=== PATIENT | male | born 1955 | race Caucasian/White ===

== ENCOUNTER → 2018-03-09 00:45 | Outpatient (CLI) | payer BC, SELFPAY ==
[2018-03-09 08:27] LABS: Abs Immature Grans 0.02 k/cumm (0.0-0.09); Absolute Basophil Count 0.06 k/cumm (0.0-0.2); Absolute Eosinophil Count 0.15 k/cumm (0.0-0.7); Absolute Lymphocyte Count 1.92 k/cumm (1.2-3.4); Absolute Monocyte Count 0.59 k/cumm (0.11-0.7); Absolute Neutrophil Count 2.96 k/cumm (1.2-6.7); Basophils % 1.1; Eosinophils % 2.6; HCT 44.9 % (40.0-50.0); HGB 15.1 g/dL (13.5-17.5); Immature Grans % 0.4; Lymphocytes % 33.7; Mean Corp. HGB Concentration 33.6 g/dL (32.0-36.0); Mean Corpuscular Hemoglobin 31.1 pg (27.0-33.0); Mean Corpuscular Volume 92.4 fL (80-95); Mean Platelet Volume 9.8 fL (8.0-11.0); Monocytes % 10.4; Neutrophils % 51.8; Platelet Count 303 x1000/uL (130-400); RBC 4.86 m/cumm (4.50-6.00)
[2018-03-09 09:19] LABS: ALT 32 U/L (12-78); AST 24 U/L (15-37); Alkaline Phosphatase 59 U/L (46-116); Anion Gap 8.5 mmol/L (3-11); BUN 18 mg/dL (7-18); Bilirubin, Total 0.5 mg/dL (0.2-1.0); CO2 28.5 mmol/L (21.0-32.0); CREATININE 1.13 mg/dL (0.70-1.30); Calcium 8.9 mg/dL (8.5-10.1); Chloride 103 mmol/L (98-107); Cholesterol 159 mg/dL (50-200); Glucose 98 mg/dL (70-100); HDL Cholesterol 50 mg/dL (40-60); LDL CHOLESTEROL 106 mg/dL (<100); Potassium 3.9 mmol/L (3.5-5.1); Sodium 140 mmol/L (136-145); Triglyceride 52 mg/dL (30-150)
== END ==
PROVIDERS: PCP Nurse Practitioner; Visit Provider Nurse Practitioner
DX: E78.5 Hyperlipidemia, unspecified (principal); I10 Essential (primary) hypertension; G47.33 Obstructive sleep apnea (adult) (pediatric)
CPT/HCPCS: 36415; 80053; 80061; 83721; 85025

== ENCOUNTER 2019-04-11 07:01 | Outpatient (CLI) | payer BC, SELFPAY ==
[2019-04-11 08:08] LABS: ALT 31 U/L (16-63); AST 16 U/L (15-37); Alkaline Phosphatase 74 U/L (46-116); BUN 18 mg/dL (7-18); Bilirubin, Total 0.3 mg/dL (0.2-1.0); CREATININE 1.13 mg/dL (0.70-1.30); Calcium 8.8 mg/dL (8.5-10.1); Calculated LDL 90 mg/dL; Chloride 103 mmol/L (98-107); Cholesterol 145 mg/dL (50-200); Glucose 110 mg/dL (70-100); HDL Cholesterol 45 mg/dL (40-60); Potassium 3.9 mmol/L (3.5-5.1); Sodium 138 mmol/L (136-145); Triglyceride 53 mg/dL (30-150)
== END 2019-04-11 07:21 ==
PROVIDERS: PCP Nurse Practitioner; Visit Provider Nurse Practitioner
DX: E78.5 Hyperlipidemia, unspecified (principal); I10 Essential (primary) hypertension
CPT/HCPCS: 36415; 80053; 80061

== ENCOUNTER 2019-11-04 01:50 | Outpatient (CLI) | payer BC, SELFPAY ==
--- NOTE | 2019-11-04 | DI.MRI_ITS ---
EXAM: MR UPPER JOINT LT WO CLINICAL HISTORY: M75.102,TEAR OF LT ROTATOR CUFF, SHOULDER PAIN. TECHNIQUE: Multiplanar multisequence MRI was performed. COMPARISON: No exams were available for comparison FINDINGS: MR examination of the shoulder was performed according to the usual protocol. Bones: Mildly abnormal signal seen in the greater tuberosity of the humerus, adjacent to supraspinatu s attachment, presumably stress or degenerative related. Mildly abnormal signal in hypertrophied acr omioclavicular joint components. There is a moderate sized glenohumeral joint effusion and there is fluid in the subacromial subdeltoi d bursa. Labrum: There may be slight labral fraying and effacement anteriorly. No gross labral tear seen. Biceps: Bicipital tendon is normally placed in the bicipital groove. There is question of surface ir regularity of the tendon and/or tendon sheath at the level of the humeral neck, partial-thickness tea r not excluded. The biceps anchor appears intact. Rotator cuff: There is abnormal signal in the distal supraspinatus tendon and infraspinatus tendon. No definite infraspinatus tendinous tear seen. Non retracted partial and full thickness tear with ir regular fraying of the distal supraspinatus tendon. There may be a minimal partial thickness tear of the distal subscapularis tendon. Additional: There is probable tear of the proximal aspect of the anterior belly of the deltoid muscle at and below the level of the acromion with abnormal signal and irregular internal surface of the an terior belly of the deltoid. IMPRESSION: Non retracted partial and full thickness tear of distal supraspinatus tendon, full-thickness tear com ponent estimated at only a couple of millimeters, partial thickness tear complex, less than 1 cm. Minimal partial thickness intrasubstance tear of the distal subscapularis tendon. Probable anterior belly proximal deltoid tear. Additional findings as described above. DATA REPOSITORY:
== END 2019-11-04 02:10 ==
PROVIDERS: PCP Nurse Practitioner; Visit Provider Specialist
DX: M25.512 Pain in left shoulder (principal); M75.102 Unspecified rotator cuff tear or rupture of left shoulder, not specified as traumatic; M25.412 Effusion, left shoulder; S46.012A Strain of muscle(s) and tendon(s) of the rotator cuff of left shoulder, initial encounter
CPT/HCPCS: 73221

== ENCOUNTER 2020-01-15 14:02 | Emergency (ER) | payer BC, SELFPAY ==
[2020-01-15 14:07] VITALS: BP 144/92; PULSE 85; RESP 18; TEMP 36.8; O2SAT 95
--- NOTE | 2020-01-15 14:14 | W.ED.GENAD ---
Discharge Plan Disposition Patient Disposition: HOME Condition: Stable Discharge Details Chief Complaint: Cellulitis Clinical Impression: Left arm cellulitis Primary Care Provider: Sary Jackson ED Provider: Massimo Monroe Home Meds and New Rx's Prescriptions: New cephalexin [Keflex] 500 mg capsule 500 mg PO QID Qty: 27 RF: 0 No Action fluticasone furoate 27.5 mcg/actuation spray,suspension 2 spray BRIE DAILY Qty: 18.2 RF: 1 amlodipine-benazepril 10-20 mg capsule 1 cap PO DAILY Qty: 90 RF: 3 simvastatin 10 mg tablet 10 mg PO DAILY Qty: 90 RF: 3 spironolacton-hydrochlorothiaz 25-25 mg tablet 1 tab PO DAILY Qty: 90 RF: 3 multivitamin [Daily Vitamin] 1 EACH tablet 1 ea PO DAILY RF: 0 aspirin [Aspirin Low-Strength] 81 MG tablet,chewable 81 mg PO DAILY Qty: 90 RF: 0 Pepto-Bismol 262 MG tablet 262 mg PO PRN RF: 0 acetaminophen [Tylenol Extra Strength] 500 MG tablet 500 mg PO BID PRNQty: 2 RF: 0 garlic [Daily Garlic Once-A-Day] 400 MG tablet 400 mg PO BID RF: 0 Probiotic (B. coagulans) 1 EACH capsule,delayed release(DR/EC) 1 ea PO DAILY RF: 0 epinephrine 0.3 MG/SYR auto-injector 0.3 mg IJ PRN PRNQty: 1 RF: 12 Discharge Instructions Instructions: Cellulitis (ED), Sunburn (ED) Additional Instructions: Please take full course of antibiotic as prescribed. Please contact your primary care physician to arrange follow-up. Return to the ER for any worsening or new concerning symptoms. Referrals: Sary Jackson, KARL [Primary Care Provider] - Medical Decision Making 64-year-old male with small papule and surrounding mild swelling. Forearm compartments soft. Difficult to determine if erythema present as patient has sunburn. Area is nontender. Patient is afebrile and nonseptic appearing. Plan to cover with Keflex for mild cellulitis. I reviewed prior Tdap immunization: Patient last received 2010. Will provide booster at this time. Patient was encouraged to follow-up with his primary care physician and return should any thing worsen. Usual customary discharge instructions were provided. Patient verbalized understanding of discharge instructions. HPI General Mode of arrival: ambulatory. Date/Time Provider Initiated Documentation: 01/15/20 14:14. Limitations to Documentation: no limitations. Information obtained by: patient. HPI Narrative: 64-year-old male presents with a chief complaint of right arm swelling. Patient notes some small area of inflammation left forearm with slightly increased swelling over the past few days. Symptoms first noted 3 days ago. No associated pain. Swelling is localized and surrounding focal raised papular superficial ulceration. He does not recall a bug bite. He is not recall insect sting. He does note he is been working outside on his [employer]. He does not recall any specific injury. Related Data Home Medications Medication Instructions Recorded Confirmed Pepto-Bismol 262 mg PO PRN 12/14/12 10/15/19 aspirin [Aspirin Low-Strength] 81 mg PO DAILY #90 tab-cap 12/14/12 10/15/19 multivitamin [Daily Vitamin] 1 ea PO DAILY 12/14/12 10/15/19 acetaminophen [Tylenol Extra 500 mg PO BID PRN #2 11/27/15 10/15/19 Strength] garlic [Daily Garlic Once-A-Day] 400 mg PO BID tab 04/04/16 10/15/19 Probiotic (B. coagulans) 1 ea PO DAILY 11/29/16 10/15/19 epinephrine 0.3 mg IJ PRN PRN #1 kit 03/07/18 10/15/19 amlodipine 10 mg-benazepril 20 mg 1 cap PO DAILY #90 tab-cap 03/20/19 10/15/19 capsule simvastatin 10 mg tablet 10 mg PO DAILY #90 tab-cap 03/20/19 10/15/19 spironolactone 25 1 tab PO DAILY #90 tab-cap 03/20/19 10/15/19 mg-hydrochlorothiazide 25 mg tablet fluticasone furoate 27.5 2 spray BRIE DAILY #18.2 ml 08/02/19 10/15/19 mcg/actuation nasal spray,suspension cephalexin [Keflex] 500 mg PO QID #27 cap 01/15/20 Previous Rx's Medication Instructions Recorded amlodipine 10 mg-benazepril 20 mg 1 cap PO DAILY #90 tab-cap 03/20/19 capsule simvastatin 10 mg tablet 10 mg PO DAILY #90 tab-cap 08/14/19 spironolactone 25 1 tab PO DAILY #90 tab-cap 03/20/19 mg-hydrochlorothiazide 25 mg tablet fluticasone furoate 27.5 2 spray BRIE DAILY #18.2 ml 08/02/19 mcg/actuation nasal spray,suspension cephalexin [Keflex] 500 mg PO QID #27 cap 01/15/20 Allergies Allergy/AdvReac Type Severity Reaction Status Date / Time bee pollen Allergy Hives Verified 01/15/20 14:13 chlorthalidone AdvReac Intermediate low Verified 01/15/20 14:13 potassium influenza virus vaccine Allergy Intermediate body aches Uncoded 01/15/20 14:13 and fever General Stated Complaint: Cellulitis ROSANA: 4 Review of Systems Constitutional Constitutional: Denies fever(s) Integumentary/Breasts Skin/Breast: Reports as per [facility] Medical History Chronic left shoulder pain (Acute) Obesity (Chronic) Surgical History Debridement, Soft Tissue (08/07/85) Dr Ramirez Left wrist: staph infection debrided Repair of inguinal hernia (~1984) [facility] Vasectomy (03/07/02) Dr Parekh's office Family History Mother Myocardial infarction Father , ? of cancer at age 70. No problems noted. Sister No problems noted. Brother No problems noted. Brother No problems noted. 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 [employer] What type of physical activity do you participate in: walking Do you feel safe at home: Yes Do you feel safe in your relationship?: Yes Exam Const General: cooperative and no acute distress HENMT Mouth: moist mucous membranes Cardio Rate: regular rate and not tachycardic Rhythm: regular rhythm Skin Rashes: rashes noted (3mm papule with superficial ulceration right forearm) and other (Sunburn face, arms, neck) Neuro General: patient alert, patient awake and patient oriented x3 Extrem General: no edema Left upper extremity: elbow/forearm (Compartments soft) Details: swelling (Mild swelling surrounding papule) and distal pulses intact; no tenderness, no unusual warmth, no crepitus and no penetrating wound Course Vital Signs Vital signs: Vital Signs Temperature 36.8 C 01/15/20 14:07 Pulse 85 01/15/20 14:07 Respiratory Rate 18 01/15/20 14:07 Blood Pressure 144/92 H 01/15/20 14:07 Pulse Oximetry 95 01/15/20 14:07 Temperature 36.8 C 01/15/20 14:07 Temperature Source Skin 01/15/20 14:07 Pulse 85 01/15/20 14:07 Respiratory Rate 18 01/15/20 14:07 Respiratory Effort Non-Labored 01/15/20 14:11 Blood Pressure 144/92 H 01/15/20 14:07 Blood Pressure Position Sitting 01/15/20 14:07 Pulse Oximetry 95 01/15/20 14:07 Oxygen Delivery Method Room Air 01/15/20 14:07 Oxygen Flow Rate 0 01/15/20 14:07
[2020-01-15] MEDS: Cephalexin 500 MG CAP PO (14:27)
== END 2020-01-15 14:44 | disposition home or self-care (01) ==
PROVIDERS: Emergency Provider Student in an Organized Health Care Education/Training Program; PCP Nurse Practitioner
DX: L03.114 Cellulitis of left upper limb (principal); L55.9 Sunburn, unspecified
CPT/HCPCS: 90471; 99284; 99283

== ENCOUNTER 2020-03-26 01:39 | Outpatient (CLI) | payer BC, SELFPAY ==
[2020-03-26 12:55] LABS: ALT 25 U/L (16-63); AST 13 U/L (15-37); Albumin 4.2 g/dL (3.4-5.0); Alkaline Phosphatase 72 U/L (46-116); Anion Gap 9.7 mmol/L (3-11); BUN 19 mg/dL (7-18); Bilirubin, Total 0.5 mg/dL (0.2-1.0); CO2 27.3 mmol/L (21.0-32.0); CREATININE 1.16 mg/dL (0.70-1.30); Calcium 9.5 mg/dL (8.5-10.1); Calculated LDL 90 mg/dL (<100); Chloride 104 mmol/L (98-107); Cholesterol 144 mg/dL (<200); Glucose 94 mg/dL (74-106); HDL Cholesterol 46 mg/dL (40-60); Potassium 3.8 mmol/L (3.5-5.1); Sodium 141 mmol/L (136-145); Total Protein 7.2 g/dL (6.4-8.2); Triglyceride 43 mg/dL (<150)
== END 2020-03-26 01:59 ==
PROVIDERS: PCP Nurse Practitioner; Visit Provider Nurse Practitioner
DX: I10 Essential (primary) hypertension (principal); E78.5 Hyperlipidemia, unspecified; E66.9 Obesity, unspecified
CPT/HCPCS: 36415; 80053; 80061

== ENCOUNTER 2020-04-23 10:06 | Day surgery (SDC) | payer BC, SELFPAY ==
[2020-04-23 10:23] VITALS: BP 145/93; PULSE 55; RESP 16; TEMP 36.2; O2SAT 98
[2020-04-23] MEDS: Lactated Ringers 1,000 ML 80 ML IV (10:42)
--- NOTE | 2020-04-23 12:00 | BOWEL_PTH ---
PATIENT: Phu Em LOC: [facility] U#:[id number] AGE/SX: 64/M ROOM: RE04/23/[address]: Sandi Arriaga : 1955 BED: DIS: 04/23/2020 SPEC #: [id number] RECD: 04/23/20 13:06 STATUS: SLIM RE #: [id number] CHUY: 04/23/20 12:[address]: Sandi Arriaga DEPT: Surgical Specimen RECD BY: Kika Turpin ENTERED: 04/23/20 13:07 SP TYPE: Bowel OTHR DR: Sary Jackson APRN Tissues: 1 - BIOPSY BOWEL 2 - BIOPSY BOWEL Procedures: GROSS AND MICRO LEVEL 4 Comments: [id number]
--- NOTE | 2020-04-23 12:17 | W.COLOREPORT ---
Date of service: 04/23/20 Time of Service: 12:18 Colonoscopy Report Date of procedure: 04/23/20 Pre-op diagnosis general: CRC screen Post-op diagnosis procedure note: other (polyps and diverticular Dx ) Procedure: CE and cold polypcetomy x4 adn severe diverticular Surgeon: Sandi Arriaga Anesthesia proc note operative: MAC Estimated blood loss (mL): 1 Pathology: other Complications: None Disposition: same day Prep: Miralax/Dulcolax Retraction Time: 12 mins Procedure Description: After informed consent was obtained the patient was taken to the procedure room and placed in a left decubitous position. Monitors were applied and a time out was done. The patients name, date of , procedure, allergies to medications and metal in their body was reviewed. The patient was then sedated. Once sedated and comfortable a rectal exam was done. External exam was normal. Internal exam revealed a normal sphincter tone and no palpable masses. The prostate nl. The scope was then introduced and retrofelexed. No internal hemorrhoids were identified. The scope was then advanced to the cecum w/ out difficulty. The TI and appendiceal orifice were identified. The prep was adequate. The scope was then slowly retracted over 12 minutes back into the rectum. Polyps were removed at x3 @ 80cm and x1 @ 70cm. These are removed with a cold biting forcep all specimen is retrieved and no bleeding is noted. Pt has severe diverticular DX. no signs of active bleeding or infection. He has severe diverticular disease with multiple large polyps pockets. The majority of the diverticuli are confined to the sigmoid colon. But he does have diverticula but they do carry over all the way to the transverse colon. The scope was removed and the patient was woken up and taken back to Same day surgery in stable condition. The patient tolerated the procedure well and there were no immediate complications. Follow up: The patient should follow up in 5-10 years, path pd, unless they develop changes in bowel habits or other new gastrointestinal complaints.
--- NOTE | 2020-04-23 12:22 | PDOC.DSDIS_ITS ---
Discharge Plan Disposition Patient Disposition: HOME Condition: Good Discharge Details Reason For Visit: colon scope Attending Provider: Sandi Arriaga Primary Care Provider: Sary Jackson Home Meds and New Rx's Prescriptions: Continued fluticasone furoate 27.5 mcg/actuation spray,suspension 2 spray BRIE DAILY Qty: 18.2 RF: 1 amlodipine-benazepril 10-20 mg capsule 1 cap PO DAILY Qty: 90 RF: 3 spironolacton-hydrochlorothiaz 25-25 mg tablet 1 tab PO DAILY Qty: 90 RF: 3 multivitamin [Daily Vitamin] 1 EACH tablet 1 ea PO DAILY RF: 0 aspirin [Aspirin Low-Strength] 81 MG tablet,chewable 81 mg PO DAILY Qty: 90 RF: 0 Pepto-Bismol 262 MG tablet 262 mg PO PRN RF: 0 acetaminophen [Tylenol Extra Strength] 500 MG tablet 500 mg PO BID PRNQty: 2 RF: 0 garlic [Daily Garlic Once-A-Day] 400 MG tablet 400 mg PO BID RF: 0 Probiotic (B. coagulans) 1 EACH capsule,delayed release(DR/EC) 1 ea PO DAILY RF: 0 simvastatin 10 mg tablet 10 mg PO DAILY Qty: 90 RF: 3 epinephrine 0.3 mg/0.3 mL auto-injector 0.3 mg IJ PRN PRN (Reason: hypersensitivity reaction) Qty: 2 RF: 6 Discontinued polyethylene glycol 3350 17 gram/dose powder 238 g PO ONCE Qty: 238 RF: 0 bisacodyl [Dulcolax (bisacodyl)] 5 mg tablet,delayed release (DR/EC) 5 mg PO ONCE Qty: 4 RF: 0 Discharge Instructions Additional Instructions: Findings: severe diverticula x4 polyps -Small light meals x24 hours -No strenuous activity or lifting over 20 pounds x 24 hours -Make sure you are moving your bowels on a regular basis and avoid straining to move your bowels -Resume aspirin in 72 hours Follow up: We will send a letter in 2 to 3 weeks with pathology results of the polyps and when to repeat the colonoscopy. Please call if you develop: fevers >101.5 Nausea or Vomiting Abdominal pain that is not transient DAY SURGERY UNIT POST COLONOSCOPY INSTRUCTIONS 1. Because there will be medication in your system for the next 24 hours, you may feel a little sleepy. Your coordination will be affected. Therefore: a. Do not drive or operate dangerous equipment for 24 hours. b. Do not drink alcohol beverages for 24 hours (not even beer). c. Plan to go home and rest for the day. 2. Generally there are no restrictions on your activity after a day or so has gone by, but you may feel a bit fatigued for a few days. 3 After you arrive home you may have a light meal and return to a normal diet as you can tolerate it without feeling sick to your stomach. 4. After surgery, you may feel pain or discomfort. This should be only transient, but if it persists please contact your doctor. 5. If there are any questions regarding the findings of your procedure, please feel free to contact your doctor. 6. If you are unable to contact your doctor with a problem, contact the hospital at [phone]. 7. Continue all your regular medications unless directed otherwise. I understand the above instructions and have no questions. Signature of Patient or Responsible Adult Escort Date/Time Name of Responsible Adult Escort Signature of Nurse Date/Time DIVERTICULAR DISEASE OVERVIEW ? A diverticulum is a pouch-like structure that can form through points of weakness in the muscular wall of the colon (ie, at points where blood vessels pass through the wall). Diverticulosis affects men and women equally. The risk of diverticular disease increases with age. It occurs throughout the world but is seen more commonly in developed countries. WHAT IS DIVERTICULAR DISEASE? Diverticulosis ? Diverticulosis merely describes the presence of diverticula. Diverticulosis is often found during a test done for other reasons, such as flexible sigmoidoscopy, colonoscopy, or barium enema. Most people with diverticulosis have no symptoms and will remain symptom free for the rest of their lives. A person with diverticulosis may have diverticulitis, or diverticular bleeding. Diverticulitis ? Inflammation of a diverticulum (diverticulitis) occurs when there is thinning and breakdown of the diverticular wall. This may be caused by increased pressure within the colon or by hardened particles of stool, which can become lodged within the diverticulum. The symptoms of diverticulitis depend upon the degree of inflammation present. The most common symptom is pain in the left lower abdomen. Other symptoms can include nausea and vomiting, constipation, diarrhea, and urinary symptoms such as pain or burning when urinating or the frequent need to urinate. Diverticulitis is divided into simple and complicated forms. ?Simple diverticulitis, which accounts for 75 percent of cases, is not associated with complications and typically responds to medical treatment without surgery. ?Complicated diverticulitis occurs in 25 percent of cases and usually requires surgery. Complications associated with diverticulitis can include the following: ?Abscess ? a localized collection of pus ?Fistula ? an abnormal tract between two areas that are not normally connected (eg, bowel and bladder) ?Obstruction ? a blockage of the colon ?Peritonitis ? infection involving the space around the abdominal organ ?Sepsis ? overwhelming body-wide infection that can lead to failure of multiple organs Diverticular bleeding ? Diverticular bleeding occurs when a small artery located within a diverticulum is eroded and bleeds into the colon. Diverticular bleeding usually causes painless bleeding from the rectum. In approximately 50 percent of cases, the person will see maroon or bright red blood with bowel movements. Is bleeding with a bowel movement normal? ? It is not normal to see blood in a bowel movement; this can be a sign of several conditions, most of which are not serious (eg, hemorrhoids) but some of which are serious and require immediate treatment. Anyone who sees blood after a bowel movement should consult with their healthcare provider to determine if further testing or evaluation is needed. DIVERTICULOSIS AND DIVERTICULITIS DIAGNOSIS ? Diverticulosis is often found during tests performed for other reasons. ?Barium enema ? This is an x-ray study that uses barium in an enema to view the outline of the lower intestinal tract. This is an older test and has been largely replaced by computed tomography (CT) scan. ?Flexible sigmoidoscopy ? This is an examination of the inside of the sigmoid colon with a thin, flexible tube that contains a camera. ?Colonoscopy ? This is an examination of the inside of the entire colon. ?CT scan ? A CT scan is often used to diagnose diverticulitis and its complications. If diverticulitis (not just diverticulosis) is suspected, the above three tests should not be used because of the risk of perforation. TREATMENT Diverticulosis ? People with diverticulosis who do not have symptoms do not require treatment. However, most clinicians recommend increasing fiber in the diet, which can help to bulk the stools and possibly prevent the development of new diverticula, diverticulitis, or diverticular bleeding. Fiber is not proven to prevent these conditions in all patients but may help to control recurrent episodes in some. Increase fiber ? Fruits and vegetables are a good source of fiber. Fiber content of packaged foods can be calculated by reading the nutrition label. Seeds and nuts ? Patients with diverticular disease have historically been advised to avoid whole pieces of fiber (such as seeds, corn, and nuts) because of concern that these foods could cause an episode of diverticulitis. However, this belief is completely unproven. We do not suggest that patients with diverticulosis avoid seeds, corn, or nuts. Diverticulitis ? Treatment of diverticulitis depends upon how severe your symp toms are. Home treatment ? If you have mild symptoms of diverticulitis (mild abdominal pain, usually left lower abdomen), you can be treated at home with a clear liquid diet and oral antibiotics. However, if you develop one or more of the following signs or symptoms, you should seek immediate medical attention: ?Temperature >100.1?F (38?C) ?Worsening or severe abdominal pain ?An inability to tolerate fluids Hospital treatment ? If you have moderate to severe symptoms, you may be hospitalized for treatment. During this time, you are not allowed to eat or drink; antibiotics and fluids are given into a vein. If you develop an abscess of the colon, you may require drainage of the abscess (usually performed by placing a drainage tube across the abdominal wall) or by surgically opening the affected area. Surgery ? If you develop a generalized infection in the abdomen (peritonitis), you will usually require an emergency operation. A two-part operation may be necessary in some cases. ?The first operation involves removal of the diseased colon and creation of a colostomy. A colostomy is an opening between the colon and the skin, where a bag is attached to collect waste from the intestine. The lower end of the colon is temporarily sewed closed to allow it to heal. ?Approximately three to six months later, a second operation is performed to reconnect the two parts of the colon and close the opening in the skin. You are then able to empty your bowels through the rectum. Sometimes patients require up to a year to recover from the first operation, depending on how sick they were. In non-emergency situations, the diseased area of the colon can be removed and the two ends of the colon can be reconnected in one operation, without the need for a colostomy. Surgery versus medical therapy ? An operation to remove the diseased area of the colon may be necessary if you do not improve with medical therapy. After an episode of uncomplicated diverticulitis, elective surgery is generally not required as the risk of another attack or requiring emergency surgery is low. However, patients with persistent symptoms attributable to diverticulitis, a history of complicated diverticulitis, or a compromised immune system should be evaluated for possible surgery to prevent another attack. In such patients, another attack has been associated with a higher risk of complications or . Of course, the decision will also depend in part upon your other medical conditions and ability to undergo surgery. In many cases, an elective operation can be performed laparoscopically, using small incisions, rather than the typical vertical (up and down) abdominal incision. Laparoscopic surgery usually allows you to recover more quickly and shortens the hospital stay. After diverticulitis resolves ? After an episode of diverticulitis resolves, if you have not had a recent colonoscopy, the entire length of the colon should be evaluated to determine the extent of disease and to rule out the presence of abnormal lesions such as polyps or cancer. Recommended tests include colonoscopy, barium enema and sigmoidoscopy, or CT colonography. Diverticular bleeding ? Most cases of diverticular bleeding resolve on their own. However, some people will need further testing or treatment to stop bleeding, which may include a colonoscopy, angiography (a treatment that blocks off the bleeding artery), bleeding scan, or surgery. DIVERTICULAR DISEASE PROGNOSIS Diverticulosis ? Over time, diverticulosis may cause no problems or it may cause episodes of bleeding and/or diverticulitis. Approximately 15 to 25 percent of people with diverticulosis will develop diverticulitis, while 5 to 15 percent will develop diverticular bleeding. Diverticulitis ? Approximately 85 percent of people with uncomplicated dive rticulitis will respond to medical treatment, while approximately 15 percent of patients will need an operation. After successful treatment for a first attack of diverticulitis, one-third of patients will remain asymptomatic, one-third will have episodic cramps without diverticulitis, and one-third will go on to have a second attack of diverticulitis. The prognosis tends to remain similar following a second attack of diverticulitis. Only 10 percent of people remain symptom-free after a second attack. Subsequent attacks tend to be of similar severity, not increasing in severity as previously believed. High Fiber Diet What is Dietary Fiber? All fiber comes from plants, bushes, adebayo or trees. Of course, the ones that we eat provide us with fruits, vegetables and grains. There are many different types of fiber but the three that are most important to the health of the body are: Insoluble Fiber This fiber does not dissolve in water, nor is it fermented by the bacteria residing in the colon. Rather, it retains water and in so doing, helps to promote a larger, bulkier and more regular bowel activity. This, in turn, may be important in preventing disorder such as diverticulosis and hemorrhoids, and in sweeping out certain toxins and cancer causing carcinogens. Sources of insoluble fiber are: ? whole grain wheat and other whole grains ? corn bran, including popcorn, unflavored and unsweetened ? nuts and seeds ? potatoes and the skins from most fruits from trees such as apples, bananas and avocados ? many green vegetables such as green beans, zucchini, celery and cauliflower ? some fruit plants such as tomatoes and kiwi Soluble Fiber These fibers are fermented or used by the colon bacteria as a food source or nourishment. When these good bacteria grow and thrive, many health benefits occur in both the colon and the body. Soluble fiber is present in some degree in most edible plant foods, but the ones with the most soluble fiber include: ? legumes such as peas and most beans, including soybeans ? oats, rye and barley ? many fruits such as berries, plums, apples bananas and pears ? certain vegetables such as broccoli and carrots ? most root vegetables ? psyllium husk supplement products Prebiotic Soluble Fiber These are relatively newly discovered soluble plant fibers. The technical name for this fiber is inulin or fructan. When these soluble fibers are fermented by the good colon bacteria, some further significant health benefits have been shown to occur by research in many medical centers. These soluble prebiotic fibers occur in significant amounts in: ? asparagus ? yams ? onions ? garlic ? bananas ? leeks ? agave ? chicory and other root vegetables such as Eldena artichokes ? wheat, rye and barley (smaller amounts) Benefits of a High Fiber Diet The health benefits of a high fiber diet, consumed on a regular basis and reaching recommended amounts (below), are now fairly well-defined. There are some additional benefits in the early research stage with the prebiotic soluble fibers. What is now known regarding a high fiber diet include: Bowel Regularity A high fiber diet promotes regularity with a softer, bulkier and regular stool pattern. This decreases the chance of hemorrhoids, diverticulosis and perhaps colon cancer. Cholesterol and Reduced Triglycerides The soluble fibers are the ones that will reduce cholesterol levels when used on a regular basis. Psyllium husk and prebiotic soluble fiber will also reduce cholesterol. They may also reduce the incidence of coronary heart disease. Oats, flax seeds and legumes or beans are the recommended fibers. Colon Polyps and Cancer It is still not certain if a high fiber diet helps prevent colon cancer. Considerable research suggests that this may occur. Certainly it makes sense to increase regularity and so speed the movement of cancer causing carcinogens through the bowel. In addition, reducing a heavy meat diet reduces the bile flow from the liver in a favorable way. This, too, reduces the amount of carcinogens that reach and are manufactured in the colon. Finally, a high fiber diet, including prebiotic soluble fiber, increases the integrity and health of the wall of the colon. The risk of cancer may be reduced. Colon Wall Integrity A high fiber diet changes the bacterial makeup of the colon toward a more favorable balance. For instance, it is known that those people with obesity, diabetes type 2 and inflammatory bowel disease have a predominance of bad bacteria in the colon. This, in turn, may render the bowel wall weak and allow bacteria and, indeed, even toxins to seep through. A high fiber diet with a modest reduction in animal and meat products may return the bacterial makeup to a more positive balance. This, in particular, has been seen when the soluble fiber prebiotics are added to the diet. Blood Sugar Soluble fiber such as in legumes (beans), oats and in prebiotic fibers slows the absorption of blood sugar and so helps regulate the sugar in the blood. Insoluble fiber on a regular basis is associated with reduced risk of type 2 diabetes. Weight Loss High fiber diets are more filling and give a sense of fullness sooner than an animal and meat based diet does. In addition, the soluble prebiotic fibers have been shown to turn off the hunger hormones produced in the wall of the gut and to increase the hormones that give a sense of fullness. Those hormones are made in the wall of the gut. New medical research has shown that the bacterial makeup in the colon in overweight people is abnormal to the extent that they manufacture and absorb almost twice the number of calories through the colon wall as do normals. Prebiotic fibers (below) will help change this hormonal balancein a favorable way. Bacteria and the Function of the Colon The colon finishes the digestive process. Hopefully, the waste products move through in a nice regular manner. Insoluble fibers help this process by retaining water and so producing a bulkier, softer stool, which is easy to pass. The additional role of the colon is to provide a home for an enormous number of micro-organisms, mostly bacteria. Recent research has shown that there are over 1,000 species of bacteria with a total bacterial count ten times the number of cells in the body. These bacteria play a major role in keeping the colon wall itself healthy. In addition, these good bacteria produce a very strong immune system for the body. They significantly increase calcium absorption and bone density. They provide other documented benefits. It is the soluble fibers in the diet that are so effective in stimulating the growth of good colon bacteria. How Much is Enough? The amount of fiber in food is measured in grams. National nutritional authorities recommend the following amounts of dietary fiber daily. Under Age 50 Over Age 50 Men 38 grams 30 grams Women 25 grams 21 grams For a week or so, it is best to tally the amount of fiber you are consuming. Boxed and packaged foods will have the amount of fiber per serving on the nutrition label. Which Fibers and Which Foods are Best? As noted, healthy fiber is only found in plants. The three major categories are whole grains, fruits and vegetables. Whole Grains Wheat, oats, barley, wild or brown rice, amaranth, buckwheat, bulgur, corn, millet, quinoa, rye, sorghum, teff and triticals. By far, wheat, oats and wild or brown rice are most common. Always buy whole grain products. White bread, baked goods and rolls almost always are made from wheat flour. Wheat flour is white because most of the fiber, vitamins and other nutrients have been removed. Try not buy enriched grains. What this means is that simple white flour has had vitamins added to it by the ore miner blasting. The word, enriched, implies a good and healthy product. On the contrary, enriched means that most of the fiber has been removed and a few vitamins added. Fruits Fruits come from trees such as apple and pear or from bushes or adebayo. You should eat a wide variety of fruits, preferably with every meal. In many cases, the skin of a fruit such as apple will contain much of the insoluble fiber while the pulp contains most of the soluble fiber. To the extent possible, buy organic fruits as these will have little or no pesticides. Always wash fruit. Vegetables Eat a wide variety of vegetables. They should be a mainstay of lunch and dinners. Frozen vegetables retain as much nutrition and fiber as fresh vegetables. As with fruit, try to buy organic to reduce any residual pesticide ingestion. Wash fresh vegetables thoroughly. Cruciferous vegetables such as broccoli, Peculiar sprouts and cauliflower contain certain chemicals such as sulforaphane. This substance has very strong anti-cancer properties and should be eaten frequently. Legumes, Beans, Peas and Soybeans These vegetables have plenty of soluble fiber and should be part of a varied vegetable intake. Beans, in particular, contain a certain type of fiber that may lead to harmless gas or bloating. Nuts and Seeds These are rich sources of fiber and are a good substitute for sweets such as candies and baked sweet goods. While nuts and seeds are rich in fiber, they also contain vegetable fat and so can and do add calories. Read the Labels As noted, fresh and frozen foods are usually better. They have good nutrition and few, if any, chemicals added to them. When buying packaged foods and, in particular grains, look for three things: ? The first word on the label should be whole, such as whole wheat or whole grain. ? Check out the calories and the amount of fiber in a serving. ? How many and what other additives or chemicals are added. Fewer is always better. Do you know what each additive does? Some are added not for the benefit of the oyster buyer but rather for manufacturers. These could and do include sugar, artificial flavor, chemicals to prevent oxidation and spoilage, emulsifiers to blend the product. You have to be a asset protection detective. Fiber Facts, Nuggets and Pearls ? For breakfast you can easily get the day started well by using a high fiber, whole grain cereal. Check the labels. Add fruit such as blueberries and bananas. If you are an egg eater, use whole wheat or grain toast. Adding wheat germ gives you a good fiber kick. ? Always use whole grain or wheat with rolls and sandwiches. Does your fast food store not have them? Perhaps you look elsewhere. Eating an occasional black ewing or veggie burger provides variety. ? Snacks should consist of fruit and/or nuts. While nuts are loaded with fiber, they are an energy rich food, meaning they have a lot of calories in a small packet. ? Fruit juices should contain pulp. Clear juices such as clear orange, pear or apple juice contain little fiber and have a lot of fructose. Prune juice is usually high in fiber. ? Homemade soups ? adding fresh or frozen vegetables to a chicken or vegetable stock is a good way to start homemade soup. ? Salads ? adding cooked and then chilled vegetables provide great flavoring to almost any salad. Remember, a hernandez salad has lots of cooked corn in it. Small slices of apples or oranges and nuts such as chopped walnuts or sliced almonds always adds taste, variety and fiber to almost any salad. ? Fruit ? Try to eat fruit of some type with almost every meal. ? Rethink how you place the various foods on your dinner plate. Reducing the portions of the meat or animal food portion to the side with equal or more portions of vegetables, legumes and fruits portion always allows for more fiber. There was never anything magic about making the meat or animal food portion the main part of the dinner plate. Eating from smaller plates can, over time, trick your mind and medical terminologist habit of using a dinner plate. Again, there is nothing magic in an 11, 12, or 13 inch dinner plate. Fiber Supplements There are a variety of fiber supplements available on the food or pharmacy shelves. Psyllium This soluble plant fiber has been used in [place] for over 2,000 years. It is a soluble fiber with mucilage in it. This acts to retain a lot of water and also is fermented by colon bacteria. When 7 grams a day are used, it does lower cholesterol. Metamucil in various forms is psyllium. Methyl Cellulose All the cellulose products come from finely ground wood chips which are then treated in a variety of ways such as boiling in acids. Methyl cellulose is an insoluble fiber which does dissolve in water. It is also an emulsifier, meaning it blends oils and water. Citrucel is methyl cellulose (MC). MC may not be appropriate for Crohn?s disease or ulcerative colitis as several medical studies have shown that certain emulsifiers dissolve the mucous lining of the colon in animals prone to Crohn?s disease. This then allows bacteria to invade the un derlying tissue. Inulin Inulin is a soluble prebiotic fiber found in many foods and which are fermented mostly in the left side of the colon. It is available in a supplement as generic inulin and in Fiber Choice. Oligofructose FOS These are also prebiotic fibers. They are fermented very quickly in the right side of the colon. Prebiotin This product is a combination of oligofructose, which feeds the bacteria in the right side of the colon and inulin, which does the same in the left side of the colon. There seems to be a benefit for this particular formula based on medical research. Prebiotic Soluble Fiber These may be the healthiest of all the soluble fibers. They grow in many plants and have had a great deal of research done on them in the last 10-15 years. These fibers are found in asparagus, yams and other root vegetables such as chicory, garlic, onion, leeks and in smaller amounts in wheat. This research has shown the following: ? Increase in good and decrease in bad colon bacteria ? Increase calcium absorption and enhanced bone mass ? Enhanced immune system ? Appetite and weight control by changing the hormone appetite signals to the brain ? May decrease colon cancer incidence ? Reduce or correct a leaky colon Eating a wide variety of plant food up to the recommended amount will likely give you enough prebiotic fiber. Supplements such as Prebiotin can be added to the diet. Short Chain Fatty Acids (SCFA) Some rather remarkable research findings have shown that one of the benefits of ingesting a lot of soluble fiber, in particular the prebiotic ones, results in larger amounts of SCFAs in the colon. These SCFAs are made by the good bacteria in the colon such as Bifidobacter and Lactobacillus. These small molecules have been shown to do the following: ? Enhance the health and integrity of the colon wall ? Provide nourishment for the cells that actually line the colon ? Increases the acidity of the colon which is a very real health benefit ? Stabilize blood sugar for diabetics ? Reduce blood cholesterol and triglyceride ? Significantly enhance immunity ? May be a benefit for Crohn?s disease and ulcerative colitis patients Fiber and Gas Everyone has intestinal gas and that is a good thing. It means that bacteria, hopefully the good ones, are thriving. The normal amount of flatus passed each day depends on sex and what is eaten. The normal number of flatus is 10-20 times a day. When the bacteria that make intestinal gases are growing, it also means that other good bacteria are using the same fibers to grow and produce multiple health benefits, including the production of healthy short-chain fatty acids. These substances are produced quietly in the colon and produce many health-related outcomes. Soluble fiber should always be used in a gradual manner. If too much is consumed at any one time, then excess, but harmless, intestinal gas can occur. People with irritable bowel syndrome are particularly prone to bloating and mild cramping. In this instance, soluble fiber in the diet or supplement should be used in small doses and increased gradually. Finally, prebiotic fibers tend to cause the production of short-chain fatty acids which acidify the colon. This, in turn, reduces or stops the growth of bacteria that make the smelly hydrogen sulfide gases that produce noxious flatus. People who consume many vegetables with prebiotics or take a prebiotic fiber supplement often have non-odoriferous flatus. Fiber and Irritable Bowel Syndrome Irritable bowel syndrome (IBS) is one of the most common disorders of the lower digestive tract. The symptoms of IBS can be quite varied. They can be a mix of several symptoms such as constipation, diarrhea, crampy abdominal discomfort, bloating and gas. An attack of IBS can be triggered by emotional tension and anxiety, poor dietary habits and certain medications. It is now known that infections in the intestine can lead to long-term IBS symptoms. Increased amounts of fiber in the diet can help relieve the symptoms of irritable bowel syndrome by producing soft, bulky stools. This helps to normalize the time it takes for the stool to pass through the colon. Recent medical research with newer techniques has shown some surprising and dramatic findings for IBS patients. Specifically, there is a very significant and abnormal shift of bacteria from those that provide health benefits to those bad bacteria that we really do not want in the gut. The technical name for this bad group of bacteria is called Firmicutes. Along with this abnormal bacterial collection, there is a smoldering low-grade inflammation in the gut wall that may contribute to symptoms. The goal for IBS patients should be to gradually increase the soluble dietary fibers in the diet so as to promote the growth of good bacteria and so suppress the bad ones along with the associated inflammation. IBS patients need to be careful of the amount of soluble fiber they consume. The reason for this is that, while the good colon bacteria thrive on these fibers and produce health benefits, other gas-forming bacteria may generate excessive but harmless gas and subsequent bloating. Thus, soluble plant fibers or a dietary prebiotic supplement should be taken in small initial doses and then gradually increased to tolerance. Fiber and Colon Polyps/Cancer Colon cancer is a major health problem. This disease is most common in Western cultures. It is not seen very often in rural cultures where the diet is mostly plant based. Usually, colon cancer starts out as a colon polyp, a benign mushroom-shaped growth. In time it grows, and in some people it becomes cancerous. Colon cancer is usually always curable if polyps are removed when found or if surgery is performed at an early stage. It is now known that people can inherit the risk of developing colon cancer, but diet is important, too. As noted, there is a very low rate of colon cancer in residents of countries where grains are unprocessed and retain their fiber. It seems that in the [place] world, cancer-containing agents (carcinogens) remain in contact with the colon wall for a longer time and in higher concentrations. So, a large bulky stool may act to dilute these carcinogens by moving them through the bowel more quickly. Less carcinogenic exposure to the colon may mean fewer colon polyps and less cancer. A very current review of the entire world?s literature on the effect of fiber on colon polyps and cancer prevention has shown rather clearly that for every 10 grams of fiber added to the diet, there is a 10% reduction in incidence of colon cancer. So the recommended 30 gram fiber diet would result in a 30% less chance of getting these tumors. There are also substances produced in the colon by the good bacteria that seem to retard certain pre-cancer factors from developing. They are called short- chain fatty acids (SCFA). See above for description of SCFAs. A high fiber diet increases these substances. So, the combination of dietary fiber and the production of short-chain fatty acids have a clear health benefit. Fiber and Diverticulosis Prolonged, vigorous contraction of the colon over a long period of time may result in diverticulosis. This increased pressure causes small and, eventually, larger ballooning pockets to form. These pockets by themselves cause no problem. However, sometimes they become infected (diverticulitis) or even break open (perforate) causing infection or inflammation within the abdomen (peritonitis). A high fiber diet increases the bulk in the stool and thereby reduces the pressure within the colon. By so doing, the formation of pockets may be reduced or possibly even stopped. In the past, many physicians were fearful that seeds as in tomatoes, nuts or berries were harmful and could get inside these pockets and rattle around, causing damage. We now know that this has never been the case and that these foods contain lots of fiber and are actually beneficial for diverticulosis patients. Certain bulking agents such as psyllium are traditional types of bulk producing supplements. Psyllium is a soluble fiber. Combining it with insoluble fiber as in wheat bran or corn bran (no gluten) can enhance this bulking effect even more. A product containing a prebiotic, psyllium and wheat bran is probably a very good combination for bowel regularity. Prebiotin Regularity/Diverticulosis is one such product. Inflammatory Bowel Disease (IBD) IBD means Crohn?s Disease (CD) or Ulcerative Colitis (UC). CD is an inflammation of the lower small bowel and/or the colon. Bacteria actually invade and cause inflammation in the entire wall of the intestine. UC, on the other hand, is an inflammation just of the lining of the colon. It usually starts in the rectum and left colon and may spread to the entire colon from there. It is now known that in both CD and UC that the bacterial make up is abnormal. This means that there are significantly more of the bad bacteria present than the good ones. These abnormal bacteria are called Firmicutes. Fiber and Crohn?s Disease There is now some information in the medical literature on what type of diet may be harmful and what may help Crohn?s Disease. A reduction in red meat is likely helpful. So is reducing the fat in the diet, including vegetable oils. More importantly, people who had low fiber ingestion in the diet had a greater chance of getting CD. So, a gradual increase in the amount of fiber is likely helpful in hopefully preventing CD. This should always be done in conjunction with the physician. It should be done gradually and should include soluble fibers which fertilize the best colon bacteria. The good bacteria grow and push out the bad ones. These good bacteria provide short chain fatty acids, which can help heal the bowel wall. Prebiotics such as Prebiotin are available. Discharge Orders Discharge Orders: Discharge Order (Routine); Ordered 04/23/20 Ordered By: Sandi Arriaga DS: Diagnosis Discharge Diagnosis (1) Diverticula of colon: Status: Acute (2) Adenomatous polyps: Status: Acute
[2020-04-23 13:01] VITALS: BP 129/80; PULSE 55; RESP 18; TEMP 36.4; O2SAT 98
== END 2020-04-23 13:10 | disposition home or self-care (01) ==
PROVIDERS: PCP Nurse Practitioner; Visit Provider Surgery
PROC: 0DJD8ZZ Inspection of Lower Intestinal Tract, Via Natural or Artificial Opening Endoscopic (ICD-10-PCS; CPT 45378; principal; 2020-04-23 10:45)
DX: Z12.11 Encounter for screening for malignant neoplasm of colon (principal); K57.30 Diverticulosis of large intestine without perforation or abscess without bleeding; I10 Essential (primary) hypertension; G47.33 Obstructive sleep apnea (adult) (pediatric); E66.9 Obesity, unspecified; K63.5 Polyp of colon
CPT/HCPCS: 45380; 88305; J2704

== ENCOUNTER 2021-05-13 03:00 | Outpatient (CLI) | payer MEDICARE, BC, SELFPAY ==
[2021-05-13 12:37] LABS: HCT 48.8 % (40.0-50.0); MCH 30.8 pg (27.0-33.0); MCHC 32.8 % (32.0-36.0); MCV 93.8 fL (80-95); Platelet Count 273 10^3/uL (130-400); RDW 12.4 % (11.8-14.1); WBC 7.12 10^3/uL (4.4-10.8)
[2021-05-13 12:56] LABS: ALT 31 U/L (16-63); AST 17 U/L (15-37); Albumin 4.2 g/dL (3.4-5.0); Alkaline Phosphatase 75 U/L (46-116); Anion Gap 8.8 mmol/L (3-11); BUN 15 mg/dL (7-18); Bilirubin, Total 0.5 mg/dL (0.2-1.0); CO2 28.2 mmol/L (21.0-32.0); CREATININE 1.1 mg/dL (0.70-1.30); Calcium 9.2 mg/dL (8.5-10.1); Calculated LDL 98 mg/dL (<100); Chloride 103 mmol/L (98-107); Cholesterol 156 mg/dL (<200); Glucose 101 mg/dL (74-106); HDL Cholesterol 46 mg/dL (40-60); Potassium 3.7 mmol/L (3.5-5.1); Sodium 140 mmol/L (136-145); Total Protein 7.3 g/dL (6.4-8.2); Triglyceride 63 mg/dL (<150)
== END 2021-05-13 03:01 | disposition home or self-care (01) ==
LOC: LOS 03:01
PROVIDERS: PCP Nurse Practitioner; Visit Provider Nurse Practitioner
DX: E78.5 Hyperlipidemia, unspecified; I10 Essential (primary) hypertension; E66.9 Obesity, unspecified; G47.33 Obstructive sleep apnea (adult) (pediatric); G47.61 Periodic limb movement disorder
CPT/HCPCS: 36415; 80053; 80061; 85027

== ENCOUNTER 2021-06-18 00:53 | Outpatient (CLI) | payer MEDICARE, BC, SELFPAY ==
--- NOTE | 2021-06-18 06:30 | DI.RAD_ITS ---
Exam(s) XR CHEST 2V PA LATERAL EXAM: XR CHEST 2V PA LATERAL CLINICAL HISTORY: chronic cough 20 years,R05.9, H/O TOBACCO ABUSE, R05.9,Z87.891 TECHNIQUE: 2D digital imaging was performed. COMPARISON: No exams were available for comparison FINDINGS: The heart is not enlarged. The lungs are clear and well expanded. No pleural effusion seen. Mediastin al contours appear intact. IMPRESSION: Normal chest. RADIATION DOSE DELIVERED: Total DLP
--- NOTE | 2021-06-18 06:30 | DI.US_ITS ---
Exam(s) US AAA SCREENING EXAM: US AAA SCREENING CLINICAL HISTORY: SCREENING FOR AAA, H/O TOBACCO ABUSE, Z13.6,Z87.891 TECHNIQUE: Ultrasound performed using standard protocol. COMPARISON: No exams were available for comparison FINDINGS: Limited abdominal ultrasound was performed to evaluate abdominal aorta. There is no abdominal aortic aneurysm. Maximal diameter of mid to distal aorta is about 24 millimeters. Right and left common i liac arteries are within normal limits in diameter as well at 14-15 millimeters. No retroperitoneal fluid collection seen. IMPRESSION: No evidence of abdominal aortic aneurysm. DATA REPOSITORY:
== END 2021-06-18 01:13 ==
PROVIDERS: PCP Nurse Practitioner; Visit Provider Nurse Practitioner
DX: R05.8 Other specified cough (principal); Z87.891 Personal history of nicotine dependence; Z13.6 Encounter for screening for cardiovascular disorders
CPT/HCPCS: 76706; 71046

== ENCOUNTER 2021-11-22 03:00 | Outpatient (CLI) | payer MEDICARE, BC, SELFPAY ==
[2021-11-22] MEDS: Albuterol HFA 18 GM 200 PUFF INH IH ×2 (09:10→09:19)
[2021-11-22] MEDS: Inhaler, Assist Device 1 EACH MC ×2 (09:10→09:20)
== END 2021-11-22 03:01 | disposition home or self-care (01) ==
LOC: RT 03:00
PROVIDERS: PCP Nurse Practitioner; Visit Provider Nurse Practitioner
DX: R05.3 Chronic cough (principal); R06.89 Other abnormalities of breathing; Z77.098 Contact with and (suspected) exposure to other hazardous, chiefly nonmedicinal, chemicals; Z77.29 Contact with and (suspected) exposure to other hazardous substances; R94.2 Abnormal results of pulmonary function studies
CPT/HCPCS: 94060; 94726; 94729

== ENCOUNTER → 2022-04-04 07:26 | Outpatient (BNVA) | payer MEDICARE, BC, SELFPAY | PROVIDERS: PCP Nurse Practitioner; Referring Provider Nurse Practitioner; Visit Provider Surgery | DX: K92.1 Melena (principal) | CPT/HCPCS: 99213 ==

== ENCOUNTER 2022-04-22 11:46 | Day surgery (SDC) | payer MEDICARE, BC, SELFPAY ==
[2022-04-22] VITALS (7 sets, daily range): BP systolic 112–132; BP diastolic 67–82; PULSE 51–78; RESP 12–18; TEMP 36.2–36.7; TEMPC 36.3; O2SAT 93–97; BMI 29.9
[2022-04-22] MEDS: Lactated Ringers 1,000 ML 80 ML IV (13:12)
--- NOTE | 2022-04-22 14:01 | W.ANESPRE ---
General Info Date of Service Date Performed: 04/22/22 Height: 6 ft 1 in Weight: 102.8 kg Body Mass Index (BMI): 29.9 Surgical Procedure: Operation Date: 04/22/22 13:20 Proposed Procedure Side Surgeon isaac Soler MD Meds Allergies and Home Medications Allergies Allergy/AdvReac Type Severity Reaction Status Date / Time bee pollen Allergy Hives Verified 04/22/22 12:26 chlorthalidone AdvReac Intermediate low Verified 04/22/22 12:26 potassium influenza virus vaccine Allergy Intermediate body aches Uncoded 04/22/22 12:26 and fever Home Medication Medication Instructions Recorded aspirin 81 mg chewable tablet 81 mg PO DAILY #90 tab-caps 12/14/12 (Aspirin Low-Strength) multivitamin (Daily Vitamin tablet) 1 ea PO DAILY 12/14/12 acetaminophen 500 mg tablet 500 mg PO BID PRN ##2 11/27/15 (Tylenol Extra Strength) garlic 400 mg tablet (Daily Garlic 400 mg PO BID 04/04/16 Once-A-Day) epinephrine 0.3 mg/0.3 mL 0.3 mg (0.3 mL) IJ PRN PRN 03/26/20 injection, auto-injector hypersensitivity reaction #2 ea apple cider vinegar 600 mg capsule 600 mg PO DAILY 05/11/21 ascorbate calcium (vitamin C) 500 500 mg PO DAILY 05/11/21 mg tablet coenzyme Q10 100 mg capsule 100 mg PO DAILY 05/11/21 (CoQ-10) fluticasone furoate 27.5 2 spray intranasal DAILY #18.2 mL 05/11/21 mcg/actuation nasal spray,suspension magnesium carb,citrate,oxide 300 mg PO DAILY 05/11/21 (Magnesium Complex) amlodipine 10 mg tablet 10 mg PO DAILY #90 tabs 10/28/21 simvastatin 10 mg tablet 10 mg PO DAILY #90 tab-caps 10/28/21 spironolactone 25 1 tab PO DAILY #90 tab-caps 10/28/21 mg-hydrochlorothiazide 25 mg tablet bisacodyl 5 mg tablet,delayed 5 mg PO ONCE #4 tabs 04/04/22 release (Dulcolax (bisacodyl)) polyethylene glycol 3350 17 17 g PO ONCE #238 grams 04/04/22 gram/dose oral powder simethicone 125 mg chewable tablet 125 mg PO QD-BID PRN 04/04/22 (Mylanta Gas) Current Visit Medications: Current Medications Generic Name Dose Route Start Last Admin Trade Name Bree PRN Reason Stop Dose Admin Ringer's Solution 1,000 mls @ 80 mls/hr 04/22/22 06:00 04/22/22 13:12 IV 05/21/22 23:59 80 mls/hr INFUSION VIGNESH Administration IV Miscellaneous Supplies 1 each 04/22/22 06:00 Iv Access IV 05/21/22 23:59 DIRECTED VIGNESH Sodium Chloride 0 ml 04/22/22 06:00 Normal Saline Flush 10 Ml Syr IV 05/21/22 23:59 PRN PRN Sodium Chloride 0 ml 04/22/22 06:00 Normal Saline 10 Ml Vial IJ 05/21/22 23:59 DIRECTED PRN Sterile Water 0 ml 04/22/22 06:00 Water,Injection,Sterile 10 Ml Vial IJ 05/21/22 23:59 DIRECTED PRN PFSH Active Problems Active Problems: Problem Status Onset Code Hematochezia K92.1 Cough R05.9 History of tobacco abuse Z87.891 Screening for AAA (abdominal aortic aneurysm) Z13.6 Tubular adenoma ~04/23/20 D36.9 Serrated adenoma of colon ~04/23/20 D12.6 Adenomatous polyps D36.9 Diverticula of colon K57.30 Periodic limb movement disorder 11/22/17 G47.61 Obstructive sleep apnea treated with BiPAP 11/22/17 G47.33 Hyperlipidemia 08/07/04 E78.5 Essential hypertension 08/07/01 I10 Benign hypertension 08/07/01 I10 Routine general medical examination at a health care facility Z00.00 Colon cancer screening Z12.11 S/P left rotator cuff repair 02/10/20 Z98.890 Chronic left shoulder pain M25.512, G89.29 Obesity E66.9 Surgical History Surgical History Debridement, Soft Tissue (08/07/85) Dr Ramirez Left wrist: staph infection debrided History of colonoscopy (~04/23/20) Repair of inguinal hernia (~1984) [facility] Vasectomy (03/07/02) Dr Parekh's office Tobacco Smoking/Tobacco Use Status: Former Tobacco Use Alcohol Alcohol Intake: current Alcohol intake frequency: holidays/special occasions only Substance Use Substance use: Never Substance use type: does not use Vital Signs and Lab Results Vital Signs Most Recent Vital Signs in EMR: Most Recent Vital Signs Temp Pulse Resp BP Pulse Ox 36.7 C 52 L 18 129/73 97 04/22/22 12:06 04/22/22 12:06 04/22/22 12:06 04/22/22 12:06 04/22/22 12:06 Lab Results Blood Type / Crossmatch: No Data to Display Complete Blood Count: No Data to Display Complete Metabolic Panel: No Data to Display Liver Function Panel: No Data to Display Coagulation Panel: No Data to Display Cardiac Panel: No Data to Display Arterial Blood Gas: No Data to Display Venous Blood Gas: No Data to Display Pancreas Panel: No Data to Display Thyroid Panel: No Data to Display Infectious Disease: No Data to Display Blood Cultures: No Data to Display Toxicology Panel: No Data to Display Anesthesia Assessment and Plan Anesthesia History Personal History: No History of Anesthesia Complications Family History: No Family History of Anesthesia Complications Exercise Tolerance Exercise Tolerance: Metabolic Equivalents>4 Pertinent Negatives Pertinent Negatives: No Symptoms of GERD, No Major Cardiovascular Symptoms or Complaints, No Major Pulmonary Symptoms or Complaints (Quit smoking 40 years ago ) and No History of CVA/TIA Cardiac & Pulmonary Exam Cardiac Exam: Normal S1/S2 Heart Sounds Pulmonary Exam: Clear Bilateral Breath Sounds Implantable Cardiac Device Does patient have a Pacemaker or an ICD?: No Airway Exam Known Difficult Airway: No Mallampati Class: 4 Mouth Opening: Normal (> 3cm) Thyromental Distance: Greater than 3 cm Neck Range of Motion: Full ROM Neck Circumference: Normal Teeth Condition: Normal Dentition and Loose or Chipped Airway Comments: #11 chipped ASA Classification ASA Score: ASA 2 Emergency Case?: No NPO Status NPO Status: NPO Clears >2 hours, Solids >8 hours Anesthesia Plan Resuscitation Status: Full Code Anesthesia Technique: General Anesthesia Airway Planned: Natural Airway Monitors Used: Standard Monitors
--- NOTE | 2022-04-22 14:55 | BOWEL_PTH ---
PATIENT: Phu Em LOC: [facility] U#:[id number] AGE/SX: 66/M ROOM: RE04/22/[address]: Eduardo Soler MD : 1955 BED: DIS: 04/22/2022 SPEC #: [id number] RECD: 04/22/22 18:41 STATUS: SLIM RE #: [id number] CHUY: 04/22/22 14:[address]: Eduardo Soler DEPT: Surgical Specimen RECD BY: Kika Turpin ENTERED: 04/22/22 18:42 SP TYPE: Bowel OTHR DR: Sary Jackson APRN Tissues: 1 - BIOPSY BOWEL Procedures: GROSS AND MICRO LEVEL 4 Comments: [id number]
--- NOTE | 2022-04-22 15:00 | DI.RAD_ITS ---
Exam(s) XR PORTABLE CHEST AP EXAM: XR PORTABLE CHEST AP CLINICAL HISTORY: Question aspiration. TECHNIQUE: 2D digital imaging was performed. COMPARISON: CR XR CHEST 2V PA LATERAL from 06/18/2021 FINDINGS: Single AP lordotic portable view. Heart size is upper normal. The mediastinum is not widened. Right lung is clear. Mild increased markings in the lower left lung field noted, IMPRESSION: Left lung base mild infiltrate. No pleural effusions evident on this portable view. DATA REPOSITORY: RADIATION DOSE DELIVERED: All CT scans at this facility use at least one of these dose optimization techniques: automated exposure control; mA and/or kV adjustment per patient size (includes targeted e xams where dose is matched to clinical indication); or iterative reconstruction.
--- NOTE | 2022-04-22 15:04 | PDOC.DSDIS_ITS ---
Discharge Plan Disposition Patient Disposition: HOME Condition: Good Discharge Details Reason For Visit: hematochezia Attending Provider: Eduardo Soler Primary Care Provider: Sary Jackson Home Meds and New Rx's Prescriptions: Continued simethicone [Mylanta Gas] 125 mg tablet,chewable 125 mg PO QD-BID PRN bisacodyl [Dulcolax (bisacodyl)] 5 mg tablet,delayed release (DR/EC) 5 mg PO ONCE Qty: 4 0RF Rx Instructions: Take according to provider's instructions for colonoscopy prep. polyethylene glycol 3350 17 gram/dose powder 17 g PO ONCE Qty: 238 0RF Rx Instructions: To be taken as directed by prescriber's office for colonoscopy prep. coenzyme Q10 [CoQ-10] 100 mg capsule 100 mg PO DAILY ascorbate calcium (vitamin C) 500 mg tablet 500 mg PO DAILY Magnesium Complex 300 mg magnesium tablet 300 mg PO DAILY apple cider vinegar 600 mg capsule 600 mg PO DAILY fluticasone furoate 27.5 mcg/actuation spray,suspension 2 spray BRIE DAILY Qty: 18.2 12RF multivitamin [Daily Vitamin] 1 EACH tablet 1 ea PO DAILY Label Comments: for vit D 400 plus 2 glasses milk Rx Instructions: for vit D 400 plus 2 glasses milk aspirin [Aspirin Low-Strength] 81 MG tablet,chewable 81 mg PO DAILY Qty: 90 acetaminophen [Tylenol Extra Strength] 500 MG tablet 500 mg PO BID PRNQty: 2 garlic [Daily Garlic Once-A-Day] 400 MG tablet 400 mg PO BID epinephrine 0.3 mg/0.3 mL auto-injector 0.3 mg IJ PRN PRN (Reason: hypersensitivity reaction) Qty: 2 6RF amlodipine 10 mg tablet 10 mg PO DAILY Qty: 90 3RF simvastatin 10 mg tablet 10 mg PO DAILY Qty: 90 3RF Rx Instructions: to lower ldl cholesterol under 130 spironolacton-hydrochlorothiaz 25-25 mg tablet 1 tab PO DAILY Qty: 90 3RF Rx Instructions: daily to control BP <140/85 Discharge Instructions Instructions: Proctitis (DC) Additional Instructions: 1. If tolerated, consume a soft, low fiber diet for 1-2 days. 2[address] Do not drive, drink alcohol, operate machinery, make critical decisions, or do activities that require coordination or balance for 24 hours. 3. Because air was put into your colon during the procedure, expelling air from your rectum (passing gas or farting) is normal. 4. You may not have a bowel movement for 1-3 days because of the colonoscopy prep. This is normal. 5. Go directly to the emergency room if you notice any of the following: Develop chills (warm to touch), or if you have a thermometer and your temperature is above 101 Difficulty breathing or difficultly swallowing Persistent vomiting Severe abdominal pain, other than gas cramps Severe chest pain Black, tarry stools Any bleeding ? exceeding one tablespoon 6. Call your physician if the site where your intravenous was started becomes red, swollen, painful, and warm to touch. 7. Your physician has reviewed your pre-procedure medications. Please continue to take those medications as previously ordered. You will be given specific information/education regarding any changes to your medications before leaving. Referrals: Eduardo Soler MD [ [facility] STAFF PHYSICIAN] - (2-3 weeks to review biopsy results) Activity:: Activity as Tolerated Diet:: As Tolerated Discharge Orders Discharge Orders: Discharge Order (Routine); Ordered 04/22/22 Ordered By: Eduardo Soler DS: Diagnosis Discharge Diagnosis (1) Proctitis: Status: Acute Asessment and Plan: My office will contact you with results of the biospies
--- NOTE | 2022-04-22 15:08 | W.COLOREPORT ---
Colonoscopy Report Date of procedure: 04/22/22 Pre-op diagnosis general: Hematochezia Post-op diagnosis procedure note: other (proctitits and diverticulosis) Procedure: Diagnostic proctoscopy with incomplete colonoscopy Surgeon: Eduardo Soler Anesthesia Type: General:No Airway Estimated blood loss (mL): 15 Pathology: other (three random biospies of inflamed rectum) Complications: Other (inadequate bowel prep and some laryngospasm with anesthesia) Indications: Phu is a 66-year-old male who is got a past medical history of known diverticulosis (identified on a previous screening colonoscopy) has been experiencing approximately 2 months of hematochezia. He also has some tenesmus, or perhaps sense of fecal urgency. Prep: Miralax/Dulcolax Procedure Start Time: 14:37 Procedure End Time: 14:58 Findings: Diverticulosis and proctitis Procedure Description: After the induction of monitored anesthetic care, and with the patient in left lateral decubitus position, I began by performing an external anorectal exam.? Perineum and skin were normal, as was the anal verge.? There was no evidence of external hemorrhoids.? Next, I performed a digital rectal exam.? I did not appreciate any abnormal findings.? Next, I advanced a colonoscope into the rectal vault.? I performed retroflexion.? There were mild internal hemorrhoids using insufflation, I then advanced the colonoscope. Around 5 cm into the rectal vault, there was circumferential erythema. It covers majority of the rectal folds up to about 20 cm. There was a bit reticular in nature. It did not appear raised, but it was a bit friable. There were no focal areas of active bleeding. Just before the area of the sigmoid colon, there was a fairly clear margin of erythema prior to normal sigmoid colonic mucosa. There was extensive sigmoid diverticulosis. I was able to advance up into the transverse colon without much difficulty. The quality of the prep was poor and required extensive irrigation to visualize the appropriate path. Unfortunately, Mr. Khoury developed some mild laryngeal spasm, and sonorous breathing. Therefore, I elected to terminate the remainder of the colonoscopy as he had recently had a screening colonoscopy for cancer, and the indication for this procedure was really hematochezia which I believe was explained by the inflammation in his rectum. Therefore, I began withdrawing the scope back to the level of the rectum. I performed 3 random biopsies around 15 to 20 cm. I used cold forceps, and the really was not much bleeding. I then withdrew the colonoscope and terminated the procedure.
--- NOTE | 2022-04-22 16:14 | W.ANESPOSTOP ---
Postoperative Evaluation Date, Time and Location Date Performed: 04/22/22 Time Performed: 16:15 Patient Location: Day Surgery Unit Vital Signs Most Recent Imported Vital Signs: Most Recent Vital Signs Temp Pulse Resp BP Pulse Ox 36.2 C L 51 L 18 122/82 95 04/22/22 15:47 04/22/22 15:47 04/22/22 15:47 04/22/22 15:47 04/22/22 15:47 Most Recent Manually Entered Vital Signs: Adult Blood Pressure: 122/82 Heart Rate: 78 Respirations: 12 Oxygen Saturation (%): 95 Temperature (C): 36.3 C Pain Score (0-10 Scale): 0 Pain Score Most Recent Pain Score: Most Recent Pain Score Pain Level 0 04/22/22 15:47 Assessment Mental Status: Awake (Alert & Oriented to Patient Baseline) Airway and Respiratory Function: Patent airway with normal (patient baseline) respiratory exam Cardiovascular Function: Hemodynamically Stable Hydration Status: Adequately Hydrated Nausea & Vomiting: No Nausea or Vomiting Pain: Pt. Denies Any Pain Peripheral Nerve Block: Patient did not receive a nerve block
== END 2022-04-22 16:33 | disposition home or self-care (01) ==
PROVIDERS: PCP Nurse Practitioner; Visit Provider Surgery
PROC: 0DJD8ZZ Inspection of Lower Intestinal Tract, Via Natural or Artificial Opening Endoscopic (ICD-10-PCS; CPT 45378; principal; 2022-04-22 13:15)
DX: K92.1 Melena (principal); K62.89 Other specified diseases of anus and rectum; K57.30 Diverticulosis of large intestine without perforation or abscess without bleeding; J38.5 Laryngeal spasm; I10 Essential (primary) hypertension; G47.33 Obstructive sleep apnea (adult) (pediatric)
CPT/HCPCS: 45380; 88305; 71045

== ENCOUNTER 2022-05-17 02:54 | Outpatient (CLI) | payer MEDICARE, BC, SELFPAY ==
[2022-05-17 08:32] LABS: ALT 25 U/L (16-63); AST 21 U/L (15-37); Albumin 4.1 g/dL (3.4-5.0); Alkaline Phosphatase 74 U/L (46-116); Anion Gap 8.9 mmol/L (3-11); BUN 18 mg/dL (7-18); Bilirubin, Total 0.5 mg/dL (0.2-1.0); CO2 28.1 mmol/L (21.0-32.0); CREATININE 1.2 mg/dL (0.70-1.30); Calcium 9.4 mg/dL (8.5-10.1); Calculated LDL 87 mg/dL (<100); Chloride 104 mmol/L (98-107); Cholesterol 150 mg/dL (<200); Glucose 102 mg/dL (74-106); HDL Cholesterol 47 mg/dL (40-60); Potassium 3.8 mmol/L (3.5-5.1); Sodium 141 mmol/L (136-145); Total Protein 8.1 g/dL (6.4-8.2); Triglyceride 81 mg/dL (<150)
== END 2022-05-17 02:55 | disposition home or self-care (01) ==
LOC: LBO 02:55
PROVIDERS: PCP Nurse Practitioner; Visit Provider Nurse Practitioner
DX: E78.5 Hyperlipidemia, unspecified (principal); I10 Essential (primary) hypertension
CPT/HCPCS: 36415; 80053; 80061

== ENCOUNTER 2022-08-16 03:59 | Outpatient (CLI) | payer MEDICARE, BC, SELFPAY ==
[2022-08-16 14:03] LABS: C-Reactive Protein < 0.05 mg/dL (0.0-0.3)
== END 2022-08-16 04:00 | disposition home or self-care (01) ==
LOC: LBO 03:59
PROVIDERS: PCP Nurse Practitioner; Visit Provider Internal Medicine Gastroenterology
DX: K51.211 Ulcerative (chronic) proctitis with rectal bleeding (principal)
CPT/HCPCS: 36415; 86140

== ENCOUNTER 2022-08-17 15:00 | Outpatient (REF) | payer MEDICARE, BC, SELFPAY ==
[2022-08-20 19:23] LABS: Calprotectin 304 mcg/g
== END 2022-08-17 15:01 | disposition home or self-care (01) ==
LOC: NCHCN 15:00
PROVIDERS: PCP Nurse Practitioner; Visit Provider Internal Medicine Gastroenterology
DX: K51.211 Ulcerative (chronic) proctitis with rectal bleeding (principal)
CPT/HCPCS: 83993

== ENCOUNTER 2022-09-07 04:24 | Outpatient (CLI) | payer MEDICARE, BC, SELFPAY ==
[2022-09-07 12:26] LABS: Vitamin D 25 Total 23.8 ng/mL (30-100)
[2022-09-08 17:34] LABS: Zinc, S 63 mcg/dL (60-106)
== END 2022-09-07 04:25 | disposition home or self-care (01) ==
PROVIDERS: PCP Nurse Practitioner; Visit Provider Nurse Practitioner
DX: E66.9 Obesity, unspecified (principal); E78.5 Hyperlipidemia, unspecified; G47.33 Obstructive sleep apnea (adult) (pediatric); K92.1 Melena; Z87.891 Personal history of nicotine dependence
CPT/HCPCS: 82306; 84630

== ENCOUNTER 2022-09-21 02:06 | Outpatient (CLI) | payer MEDICARE, BC, SELFPAY ==
[2022-09-21 12:21] LABS: Abs Immature Grans 0.02 10^3/uL (0.0-0.06); Absolute Basophil Count 0.09 10^3/uL (0.0-0.2); Absolute Eosinophil Count 0.36 10^3/uL (0.0-0.7); Absolute Monocyte Count 0.71 10^3/uL (0.1-0.8); Absolute Neutrophil Count 4.63 10^3/uL (1.2-6.7); Basophils % 1.2; Eosinophils % 4.8; HCT 45.3 % (40.0-50.0); HGB 14.8 g/dL (13.5-17.5); Immature Grans % 0.3; Lymphocytes % 22.6; MCH 29.8 pg (27.0-33.0); MCHC 32.7 % (32.0-36.0); MCV 91 fL (80-95); MPV 9.3 fL (8.0-11.0); Monocytes % 9.5; Neutrophils % 61.6; Platelet Count 353 10^3/uL (130-400); RBC 4.96 10^6/uL (4.36-5.78); RDW 13.2 % (11.8-14.1); RDW-SD 44.6 fL; WBC 7.51 10^3/uL (4.4-10.8)
[2022-09-21 12:48] LABS: ALT 29 U/L (16-63); AST 20 U/L (15-37); Albumin 3.9 g/dL (3.4-5.0); Alkaline Phosphatase 77 U/L (46-116); Anion Gap 9.3 mmol/L (3-11); BUN 7 mg/dL (7-18); Bilirubin, Total 0.2 mg/dL (0.2-1.0); CO2 27.7 mmol/L (21.0-32.0); CREATININE 1.2 mg/dL (0.70-1.30); Calcium 8.8 mg/dL (8.5-10.1); Chloride 102 mmol/L (98-107); Glucose 100 mg/dL (74-106); Potassium 3.5 mmol/L (3.5-5.1); Sodium 139 mmol/L (136-145); Total Protein 7.5 g/dL (6.4-8.2)
== END 2022-09-21 02:07 | disposition home or self-care (01) ==
LOC: LBO 02:06
PROVIDERS: PCP Nurse Practitioner; Visit Provider Internal Medicine Gastroenterology
DX: K51.211 Ulcerative (chronic) proctitis with rectal bleeding (principal)
CPT/HCPCS: 36415; 80053; 85025

== ENCOUNTER 2022-11-22 09:27 | Outpatient (CLI) | payer MEDICARE, BC, SELFPAY | END 2022-11-22 09:28 | disposition home or self-care (01) | LOC: DI.KIM 09:29 | PROVIDERS: PCP Nurse Practitioner; Visit Provider Nurse Practitioner | DX: I49.9 Cardiac arrhythmia, unspecified (principal) | CPT/HCPCS: 93010 ==

== ENCOUNTER 2023-01-31 11:19 | Outpatient (CLI) | payer MEDICARE, BC, SELFPAY ==
--- NOTE | 2023-01-31 10:45 | DI.US_ITS ---
APPROVED REPORT EXAM: Comprehensive 2D, Doppler, and color-flow Echocardiogram Patient Location: Out-Patient Clinical Systems Analyst: Abdias Roa RDMS, RVT Indications: LVH on EKG, cardiomegaly Other Information Study Quality: Adequate Conclusion Normal left ventricular wall thickness and chamber size. Ejection fraction is 55%. Wall motion is n ormal Normal right ventricular size and systolic function Both atria are normal in size There is no structural or hemodynamically significant valvular disease Mildly dilated ascending aorta 3.84 cm Estimated right ventricular systolic pressure is 27 mmHg Wall motion Left Ventricle The left ventricle is normal size. The left ventricular systolic function is normal. The left ventric ular ejection fraction is within the normal range. There is normal left ventricular wall thickness. T here is normal LV segmental wall motion. There is no ventricular septal defect visualized. LVEF is 55 %. Right Ventricle The right ventricle is normal size. Right ventricular systolic function is grossly normal. The RVSP i s 27.0 mmHg. Atria The left atrium size is normal. The right atrium size is normal. The interatrial septum is intact wit h no evidence for an atrial septal defect. Aortic Valve The aortic valve is normal in structure. There is no aortic valvular stenosis. No aortic regurgitatio n is present. Mitral Valve The mitral valve is normal in structure. No evidence of mitral valve stenosis. Mild mitral regurgitat ion. Tricuspid Valve The tricuspid valve is normal in structure. There is no tricuspid valve stenosis. Trace tricuspid reg urgitation. Pulmonic Valve The pulmonary valve is normal in structure. There is no pulmonic valvular stenosis. There is no pulmo june valvular regurgitation. Great Vessels The aortic root is normal in size. The ascending aorta is mildly dilated. Aortic arch is normal in ca liber. IVC is normal in size and collapses >50% with inspiration. Pericardium There is no pericardial effusion. 2D Dimensions IVSD d PLAX 0.69 cm M: 0.6-1.2 LV Vol A2C d MOD 122.8 mL LVPW d PLAX 0.69 cm M: 0.6 - 1.2 LV Vol A4C d MOD 149.1 mL LVID d PLAX 4.85 cm M: 4.2 - 5.8 LA vol/ BSA A4C s A-L 30.7 mL/m2 LVDs 3.40 cm M: 2.5 - 4.0 LA Area A4C s MOD 22.37 cm2 Ao Root d 2.86 cm M: 3.1 - 3.7 LV EF A4C MOD 53.5 % Ao Asc Diam d 3.84 cm M: 2.6 - 3.4 LV EF A2C MOD 54.5 % LV EF Teichholz 56.9 % LV EF Biplane MOD 53.7 % LVEF (Arboleda's) 53.72 % M: 52 - 72 SV 72.61 mL LV Volume 96.91 mL M: 62 - 150 SV Index 31.51 mL/m2 LV Volume Index 41.95 mL/m2 M: 34 - 74 LV Vol Biplane MOD 135.2 mL FS 29.85 % M-Mode TAPSE 2.07 cm (M/F) >1.7 LV Diastology MV E' medial 0.156 (>0.07 m/s) E/A Ratio 1.1 LV E/e MED 4.80 (<14) MV E Vmax 0.76 (0.4-1.3 m/s) MV E' lateral 0.134 (>0.1 m/s) MV A Vmax 0.70 (0.4-1.3 m/s) LV E/e LAT 5.65 (<14) MV E/A Ratio 1.03 MV E/E' medial 4.84 MV E/E' lateral 5.66 Aortic Valve LVOT Area 4.09 cm2 AoV Area Vmax 3.80 cm2 LVOT Vmax 1.24 m/s AoV Area/ BSA (Vmax) 1.65 cm2/m2 LVOT Mean Waqar. 0.77 m/s ADAMS Mean Waqar. 3.33 cm2 LVOT Peak Grad 6.1 mmHg ADAMS Mean Waqar. Index 1.45 cm2/m2 LVOT Mean Grad 2.8 mmHg LVOT VTI 0.247 m LVOT Diam s 2.25 cm AoV Vmax 1.33 m/s Velocity Ratio 0.93 AoV Mean Waqar. 0.95 m/s AoV Peak Grad 7.1 mmHg LVOT SV 101.16 mL AoV Mean Grad 4.0 mmHg AoV VTI 0.275 m AoV Area VTI 3.68 cm2 AoV Area/ BSA (VTI) 1.60 cm/m2 Mitral Valve MV DT 254 (160-240 msec) MV PHT 74 msec MV Area PHT 2.98 cm2 MV VTI 0.323 m MV Area VTI 3.13 (4.0-6.0 cm2) Pulmonary Valve PV Vmax 1.19 (0.5-1.5 m/s) RVOT Peak Gr. 1.75 mmHg PV Peak Grad 5.7 mmHg RVOT Mean Gr. 0.90 mmHg PV Mean Grad 2.8 mmHg RVOT VTI 0.137 m PV VTI 0.211 m RVOT Vmax 0.66 m/s Tricuspid Valve TR Peak Grad 24.0 mmHg TR Vmax 2.45 m/s RA Pressure 3.00 mmHg RVSP (TR) 27.0 mmHg
== END 2023-01-31 11:39 ==
PROVIDERS: PCP Nurse Practitioner; Visit Provider Nurse Practitioner
DX: I51.7 Cardiomegaly (principal)
CPT/HCPCS: 93306

== ENCOUNTER → 2023-04-27 13:10 | Outpatient (CLI) | payer MEDICARE, BC, SELFPAY ==
--- NOTE | 2023-04-27 10:44 | DI.US_ITS ---
Exam(s) US HERNIA EXAM: US HERNIA CLINICAL HISTORY: evaluate pathology,VENTRAL HERNIA,CONSTIPATION. TECHNIQUE: Ultrasound was performed using standard protocol. COMPARISON: No exams were available for comparison FINDINGS: Sonographic assessment utilizing grayscale and color Doppler imaging was performed and targeted to th e area of clinical concern. There is an umbilical hernia measuring at least 2.1 x 1.7 x 1.9 cm. It appears to contain both fat a nd bowel. IMPRESSION: Anterior abdominal wall umbilical hernia which appears to contain both fat and bowel. A CT scan may be obtained for further evaluation. DATA REPOSITORY:
--- NOTE | 2023-04-27 11:43 | DI.RAD_ITS ---
Exam(s) XR ABDOMEN FLAT PLATE EXAM: 2D digital imaging was performed. CLINICAL HISTORY: evaluate stool load,CONSTIPATION. COMPARISON: No exams were available for comparison TECHNIQUE: Supine views of the abdomen performed. FINDINGS: BOWEL GAS PATTERN: Nondistended. Large quantity of stool seen throughout the colon. CALCIFICATIONS: No radiopaque calcifications. OSSEOUS STRUCTURES: Normal degenerative changes in the lumbar spine. OTHER FINDINGS: No evidence of organomegaly. IMPRESSION: 1. Nonobstructive bowel gas pattern. Large quantity of stool throughout the colon. 2. No radiopaque calculi. DATA REPOSITORY: RADIATION DOSE DELIVERED:
== END ==
PROVIDERS: PCP Nurse Practitioner; Visit Provider Nurse Practitioner Family
DX: K59.00 Constipation, unspecified; K42.9 Umbilical hernia without obstruction or gangrene
CPT/HCPCS: 76857; 74018

== ENCOUNTER 2023-05-01 18:50 | Outpatient (CLI) | payer MEDICARE, BC, SELFPAY ==
[2023-05-01 15:57] LABS: Abs Immature Grans 0.23 10^3/uL (0.0-0.06); Absolute Basophil Count 0.07 10^3/uL (0.0-0.2); Absolute Lymphocyte Count 1.92 10^3/uL (1.2-3.4); Basophils % 0.4; Eosinophils % 0.2; HCT 35.5 % (40.0-50.0); HGB 11.9 g/dL (13.5-17.5); Immature Grans % 1.4; Lymphocytes % 11.8; MCH 28.9 pg (27.0-33.0); MCHC 33.5 % (32.0-36.0); MCV 86 fL (80-95); MPV 9.1 fL (8.0-11.0); Monocytes % 7.5; Neutrophils % 78.7; Platelet Count 721 10^3/uL (130-400); RBC 4.12 10^6/uL (4.36-5.78); RDW 15.2 % (11.8-14.1); RDW-SD 47.4 fL; WBC 16.31 10^3/uL (4.4-10.8)
[2023-05-01 16:01] LABS: Absolute Eosinophil Count 0.03 10^3/uL (0.0-0.7); Absolute Monocyte Count 1.22 10^3/uL (0.1-0.8); Absolute Neutrophil Count 12.84 10^3/uL (1.2-6.7)
[2023-05-01 16:09] LABS: Diff Comment Diff Reviewed; RBC Morphology Normal
[2023-05-01 17:52] LABS: ALT 419 U/L (16-63); AST 200 U/L (15-37); Albumin 2.4 g/dL (3.4-5.0); Alkaline Phosphatase 290 U/L (46-116); Anion Gap 11.7 mmol/L (3-11); BUN 18 mg/dL (7-18); Bilirubin, Total 0.4 mg/dL (0.2-1.0); CO2 25.3 mmol/L (21.0-32.0); CREATININE 1.2 mg/dL (0.70-1.30); Calcium 8.8 mg/dL (8.5-10.1); Chloride 96 mmol/L (98-107); Estimated GFR 66.28 (mL/min/1.73m2); Glucose 98 mg/dL (74-106); Potassium 4.7 mmol/L (3.5-5.1); Sodium 133 mmol/L (136-145); TSH (W/Ref FT4) 0.71 uIU/mL (0.36-3.74); Total Protein 7.3 g/dL (6.4-8.2)
[2023-05-01 20:12] LABS: Vitamin D 25 Total 51.3 ng/mL (30-100)
[2023-05-03 10:24] LABS: Lyme Ab w Rflx to Lyme Confirm Negative (Negative)
[2023-05-05 17:11] LABS: Anaplasma phagocytophilum Negative (Negative); B. miyamotoi PCR Negative (Negative); Babesia divergens/MO-1 Negative (Negative); Babesia duncani Negative (Negative); Babesia microti Negative (Negative); Ehrlichia chaffeensis Negative (Negative); Ehrlichia ewingii/canis Negative (Negative); Ehrlichia muris eauclairensis Negative (Negative)
== END 2023-05-01 18:51 | disposition home or self-care (01) ==
LOC: LBO 18:51
PROVIDERS: PCP Nurse Practitioner; Visit Provider Nurse Practitioner
DX: K59.00 Constipation, unspecified (principal); R53.83 Other fatigue; E55.9 Vitamin D deficiency, unspecified
CPT/HCPCS: 36415; 80053; 82306; 87798; 84443; 85025; 86618

== ENCOUNTER → 2023-05-02 13:59 | Outpatient (BNVA) | payer MEDICARE, BC, SELFPAY | PROVIDERS: PCP Nurse Practitioner; Referring Provider Nurse Practitioner Family; Visit Provider Surgery | DX: K46.9 Unspecified abdominal hernia without obstruction or gangrene (principal); K62.89 Other specified diseases of anus and rectum; K51.211 Ulcerative (chronic) proctitis with rectal bleeding; R63.4 Abnormal weight loss | CPT/HCPCS: 99202; 99213 ==

== ENCOUNTER 2024-02-27 01:31 | Outpatient (CLI) | payer MEDICARE, BC, SELFPAY ==
[2024-02-27 07:19] LABS: Abs Immature Grans 0.01 10^3/uL (0.0-0.06); Absolute Basophil Count 0.07 10^3/uL (0.0-0.2); Absolute Eosinophil Count 0.42 10^3/uL (0.0-0.7); Absolute Lymphocyte Count 1.44 10^3/uL (1.2-3.4); Absolute Monocyte Count 0.55 10^3/uL (0.1-0.8); Absolute Neutrophil Count 3.41 10^3/uL (1.2-6.7); Basophils % 1.2 %; Eosinophils % 7.1 %; HCT 42.5 % (40.0-50.0); HGB 13.6 g/dL (13.5-17.5); Immature Grans % 0.2 %; Lymphocytes % 24.4 %; MCV 88 fL (80-95); MPV 9.8 fL (8.0-11.0); Monocytes % 9.3 %; Neutrophils % 57.8 %; Platelet Count 305 10^3/uL (130-400); RBC 4.85 10^6/uL (4.36-5.78); RDW 16.6 % (11.8-14.1); RDW-SD 53.2 fL
[2024-02-27 07:49] LABS: ALT 26 U/L (16-63); AST 18 U/L (15-37); Albumin 3.8 g/dL (3.4-5.0); Alkaline Phosphatase 82 U/L (46-116); Anion Gap 12.2 mmol/L (3-11); BUN 26 mg/dL (7-18); Bilirubin, Total 0.36 mg/dL (0.2-1.0); CO2 22.8 mmol/L (21.0-32.0); CREATININE 1.2 mg/dL (0.70-1.30); Calcium 8.8 mg/dL (8.5-10.1); Calculated LDL 107 mg/dL (<100); Chloride 108 mmol/L (98-107); Cholesterol 160 mg/dL (<200); Estimated GFR 65.87 (mL/min/1.73m2); Glucose 105 mg/dL (74-106); HDL Cholesterol 44 mg/dL (40-60); Potassium 3.9 mmol/L (3.5-5.1); Sodium 143 mmol/L (136-145); Total Protein 7.5 g/dL (6.4-8.2); Triglyceride 48 mg/dL (<150)
== END 2024-02-27 01:32 | disposition home or self-care (01) ==
LOC: LBO 01:31
PROVIDERS: PCP Nurse Practitioner; Visit Provider Nurse Practitioner
DX: R79.9 Abnormal finding of blood chemistry, unspecified (principal); I10 Essential (primary) hypertension; E78.5 Hyperlipidemia, unspecified
CPT/HCPCS: 36415; 80053; 80061; 85025

== ENCOUNTER 2024-08-28 00:42 | Outpatient (CLI) | payer MEDICARE, BC, SELFPAY ==
--- NOTE | 2024-08-28 06:41 | DI.CT_ITS ---
Exam(s) CT ABDOMEN WO/W EXAM: CT ABDOMEN WO/W CLINICAL HISTORY: incidental adrenal nodule,Hx liver abscess,E27.9. TECHNIQUE: Imaging Protocol: Axial computed tomography images with coronal and sagittal reformatted images were created and reviewed CONTRAST MATERIAL: Intravenous: Omnipaque-350 100cc Oral: None COMPARISON: CT CT ABDOMEN AND PELVIS W CONTRAST from 05/02/[address] ABDOMEN AND PELVIS W CONTRAST from 06/05/2023 FINDINGS: VISUALIZED LUNG BASES: No nodules nor pleural effusions evident. ABDOMEN: ADRENALS: Left adrenal gland unremarkable. There are 2 nodular densities in the right adrenal gland. The larger of these 2 nodules measures 1.6 by 1.5 cm, exhibiting minimal if any significant change in size from the CT scan of May 2023. The smaller-more inferior nodule measures 0.6 x 0.7 cm, also similar to previous. On the noninfused sequence both right adrenal nodules measure less than 10 HU. E xhibits some mild enhancement. Washout demonstrated. These 2 nodules are most probably adenomas There is no ascites. LIVER: Possible very subtle lesion in the superior aspect of the left hepatic lobe. No dilated intrah epatic ducts. GALLBLADDER/BILIARY: Gallstones are noted on the dependent wall the gallbladder. No gallbladder wall edema nor pericholecystic fluid. CBD is not dilated. PANCREAS: No evidence of pancreatic mass nor dilatation of the pancreatic duct. SPLEEN: Spleen is not enlarged. No obvious intrasplenic lesions. Splenic and portal veins are paten t. KIDNEYS:There is a large 8 cm x 7 cm cyst in the anterior aspect of the right kidney. No solid renal masses. No calculi. No hydronephrosis.. ABDOMINAL AORTA: Abdominal aorta is not enlarged. LYMPH NODES:There is no retroperitoneal nor paraaortic adenopathy. ABDOMINAL WALL: There is an anterior abdominal wall umbilical hernia again noted which contains nonob structed small bowel loops, as was previously present on CT scan of April 2023. GI: There is no evidence of bowel obstruction, free air, nor abscess. IMPRESSION: 1. There are 2 right adrenal nodules measuring 16 x 15 mm and 6 x 7 mm. These have not increased in s ize from CT scan of May 2023 and on the noncontrast study average less than 10 Hounsfield units, indicating the DC most probably 9 adenomas. Opposite-left adrenal gland remains unremarkable. 2. Possible subtle mass in the superior aspect of the liver, best seen on the coronal images. Recomme nd follow-up MRI scan of the abdomen. This will also help qualify the adrenal glands with in and out of phase MRI imaging. 3. Cholelithiasis. There are multiple gallstones in the gallbladder neck region but no CT evidence of acute cholecystitis. 4. Anterior abdominal wall umbilical hernia which contains nonobstructed small bowel loops. This was also evident on prior CT scan of 06/05/2023. RADIATION DOSE DELIVERED: 1,578.27mGy.cm Total DLP DATA REPOSITORY: All CT scans at this facility are submitted to the National Radiology Data Registry (NRDR) Dose Index Registry (DIR) with the [employer] (A[employer]). RADIATION OPTIMIZATION: All CT scans at this facility use at least one of these dose optimization te chniques: automated exposure control; mA and/or kV adjustment per patient size (includes targeted exa ms where dose is matched to clinical indication); or iterative reconstruction.
[2024-08-28 08:31] LABS: CREATININE 1.2 mg/dL (0.70-1.30); Estimated GFR 65.87 (mL/min/1.73m2)
[2024-08-28] MEDS: Normal Saline - Diluent 50 ML VIAL IJ (08:35)
[2024-08-28] MEDS: Omnipaque 350 MG/ML 500 ML BTL-Imaging package IJ (08:36)
== END 2024-08-28 01:02 ==
LOC: DI 00:42
PROVIDERS: PCP Nurse Practitioner; Visit Provider Nurse Practitioner
DX: E27.8 Other specified disorders of adrenal gland (principal)
CPT/HCPCS: 74170; 82565

== ENCOUNTER 2024-09-24 02:26 | Outpatient (CLI) | payer MEDICARE, BC, SELFPAY ==
--- NOTE | 2024-09-24 06:59 | DI.MRI_ITS ---
Exam(s) MR ABDOMEN WO/W EXAM: MR ABDOMEN WO/W CLINICAL HISTORY: eval adrenals,? Liver mass,Hx abscess liver,R93.2,E27.8 TECHNIQUE: Multiplanar multisequence MRI was performed with both pre and post contrast infused seque nces. Contrast injected sequences were performed following IV injection of cc of Dotarem. COMPARISON: CT CT ABDOMEN AND PELVIS W CONTRAST from 05/02/2023. Outside institution FINDINGS: VISUALIZED LUNG BASES: No pleural effusions evident. There is no ascites evident. LIVER: There are no significant discrete focal lesions in the liver and there is no evidence of intra hepatic abscess, as suggested on the requisition BILIARY: There are small gallstones noted on the dependent wall the gallbladder near the gallbladder neck. Gallbladder size is upper normal. There is no gallbladder wall edema nor pericholecystic flui d evident. The CBD is not dilated.There are no obvious calculi in the nondilated CBD. PANCREAS: There is no evidence of pancreatic mass nor dilatation of the pancreatic duct. SPLEEN: Spleen is not enlarged and there are no intrasplenic lesions.Splenic and portal veins are pat ent ADRENALS: Left adrenal gland unremarkable. Previously described 2 small nodules in the right adrenal gland have not increased in size from outside CT scan of April 2023 and are T2 hypointense and b oth exhibit signal loss on out of phase sequences, consistent with probable benign lipid rich adenoma s KIDNEYS: Again noted is a large benign cyst in the anterior aspect of the right kidney which measures 7.4 x 7.3 by 7.5 cm. Does not require further workup. There are no solid renal masses. There are no other significant focal findings in the kidneys and there is no hydronephrosis. No perinephric fl uid collections. No hydronephrosis nor hydroureter. ABDOMINAL AORTA: Not enlarged and there is no significant para-aortic adenopathy. ANTERIOR ABDOMINAL WALL/GI: There is an anterior abdominal wall umbilical hernia again noted. This c ontains both fat and a small part of an adjacent small bowel loop although the length of small bowel loop within the hernia sac is less than was evident on the outside CT scan of April 2023.There is no evidence of small-bowel obstruction. OSSEOUS: There are no vertebral fractures nor lytic osseous lesions in the field of view of this stud y. There is an element of central spinal canal stenosis at L4-5 level IMPRESSION: 1. There are 2 small benign-appearing nodules in the right adrenal gland which are unchanged in size from an outside CT scan of 05/02/2023 and exhibit an element of signal loss on out of phase imaging, as well as T2 hypointensity, these findings consistent with benign adenomas. The opposite-left adren al gland remains unremarkable. 2. There are no significant focal findings in the liver. No evidence of intrahepatic abscess, as per request. 3. Cholelithiasis again noted, without evidence of acute cholecystitis nor dilatation of the biliary tree. 4. Anterior abdominal wall umbilical hernia again noted which contains peritoneal fat and a small pa rt of an adjacent small bowel loop and some fluid in the hernia sac. However, there does not appear to be a small bowel obstruction. 5. Again noted is a 7.5 cm benign cyst in the right kidney, unchanged in size and this finding not r equiring further imaging workup. There are no solid masses in the kidneys and there is no hydronephr osis. DATA REPOSITORY:
[2024-09-24] MEDS: Normal Saline - Diluent 50 ML VIAL IJ (12:19)
[2024-09-24] MEDS: Gadoterate meglumine 20 ML VIAL IVP (12:22)
== END 2024-09-24 02:46 ==
LOC: DI 02:26
PROVIDERS: PCP Nurse Practitioner; Visit Provider Nurse Practitioner
DX: R93.2 Abnormal findings on diagnostic imaging of liver and biliary tract (principal); E27.8 Other specified disorders of adrenal gland
CPT/HCPCS: 74183

== ENCOUNTER → 2024-10-03 09:26 | Outpatient (BNVA) | payer MEDICARE, BC, SELFPAY | PROVIDERS: PCP Nurse Practitioner; Referring Provider Nurse Practitioner; Visit Provider Physical Therapy Assistant | DX: Z12.11 Encounter for screening for malignant neoplasm of colon (principal); Z86.0100 Personal history of colon polyps, unspecified; I10 Essential (primary) hypertension ==

== ENCOUNTER 2024-10-14 07:30 | Day surgery (SDC) | payer MEDICARE, BC, SELFPAY ==
--- NOTE | 2024-10-13 06:18 | W.PM.DSUDISC ---
Date of service: 10/14/24 Discharge Plan Disposition Patient Disposition: Home Condition: Good Discharge Details Reason For Visit: screening colonoscopy Attending Provider: Eduardo Soler Primary Care Provider: Sary Jackson Home Meds and New Rx's Prescriptions: Continued simethicone [Mylanta Gas] 125 mg tablet,chewable 125 mg PO QD-BID PRN simvastatin 10 mg tablet See Rx Instructions .ROUTE .COMPLEX Qty: 90 3RF Dose Instruction: TAKE ONE TABLET BY MOUTH EVERY DAY TO LOWER CHOLESTEROL Rx Instructions: TAKE ONE TABLET BY MOUTH EVERY DAY TO LOWER CHOLESTEROL coenzyme Q10 [CoQ-10] 100 mg capsule 100 mg PO DAILY ascorbate calcium (vitamin C) 500 mg tablet 500 mg PO DAILY Magnesium Complex 300 mg magnesium tablet 300 mg PO DAILY apple cider vinegar 600 mg capsule 600 mg PO DAILY fluticasone furoate 27.5 mcg/actuation spray,suspension 2 spray BRIE DAILY Qty: 18.2 12RF cholecalciferol (vitamin D3) 50 mcg (2,000 unit) capsule 50 mcg PO DAILY multivitamin [Daily Vitamin] 1 EACH tablet 1 ea PO DAILY Patient Comments: for vit D 400 plus 2 glasses milk Rx Instructions: for vit D 400 plus 2 glasses milk aspirin [Aspirin Low-Strength] 81 MG tablet,chewable 81 mg PO DAILY Qty: 90 acetaminophen [Tylenol Extra Strength] 500 MG tablet 500 mg PO BID PRNQty: 2 garlic [Daily Garlic Once-A-Day] 400 MG tablet 400 mg PO BID polyethylene glycol 3350 [Miralax] 17 gram/dose powder 17 g PO DAILY epinephrine 0.3 mg/0.3 mL auto-injector 0.3 mg IJ PRN PRN (Reason: hypersensitivity reaction) Qty: 2 6RF amlodipine 10 mg tablet See Rx Instructions .ROUTE .COMPLEX Qty: 90 3RF Dose Instruction: TAKE ONE TABLET BY MOUTH EVERY DAY Rx Instructions: TAKE ONE TABLET BY MOUTH EVERY DAY terbinafine HCl [Lamisil] 1 applic topical DIRECTED Rx Instructions: as directed: apply x 2 weeks then stop for 2 weeks spironolacton-hydrochlorothiaz 25-25 mg tablet See Rx Instructions .ROUTE .COMPLEX Qty: 90 3RF Dose Instruction: TAKE ONE TABLET BY MOUTH EVERY DAY TO CONTROL BLOOD PRESSURE (KEEP UNDER 140/85) Rx Instructions: TAKE ONE TABLET BY MOUTH EVERY DAY TO CONTROL BLOOD PRESSURE (KEEP UNDER 140/85) Discontinued bisacodyl [Dulcolax (bisacodyl)] 5 mg tablet,delayed release (DR/EC) 5 mg PO ONCE Qty: 4 0RF Rx Instructions: Take per colonoscopy instructions provided by ordering providers office polyethylene glycol 3350 17 gram/dose powder 17 g PO ONCE Qty: 238 0RF Rx Instructions: Take per colonoscopy instructions provided by ordering providers office Discharge Instructions Additional Instructions: Phu, it was nice seeing you today, please except my apologies for not recognizing your first. Your colonoscopy went very smoothly. There were a few findings that we will need to sort out over the coming weeks. The first issue is that I found, and removed, 5 polyps today. I am reassured by the fact that they are all quite small, and none of them have any worrisome features to the naked eye. All of these polyps will be sent off for testing, and once the pathologist has reviewed the nature of the polyps, that will provide some information regarding future colonoscopies. More concerning, however, he has ongoing inflammation in the top part of your rectum this is a small pocket of tissue just below the level where your colon was connected back together after your surgery. I did several biopsies of this to see if that will shed any light on the underlying diagnosis. Those results will come back with the pathology report from the polyps. I suspect at that point, referring you back to the drama critic at [facility] is probably the best option. All of these biopsies, and removal of the polyps will probably cause a little bit of bleeding in your bowel movements over the next few days. So long as it slows down and stops it should not be an issue. If you start passing large amounts of blood, or thick blood clots like red Jell-O, please let me know. I will be in touch once I have the results of all the pathology report, and if you need anything else in the meantime, please do not hesitate to call. 1. If tolerated, consume a soft, low fiber diet for 1-2 days. 2. Do not drive, drink alcohol, operate machinery, make critical decisions, or do activities that require coordination or balance for 24 hours. 3. Because air was put into your colon during the procedure, expelling air from your rectum (passing gas or farting) is normal. 4. You may not have a bowel movement for 1-3 days because of the colonoscopy prep. This is normal. 5. Go directly to the emergency room if you notice any of the following: Develop chills (warm to touch), or if you have a thermometer and your temperature is above 101 Difficulty breathing or difficultly swallowing Persistent vomiting Severe abdominal pain, other than gas cramps Severe chest pain Black, tarry stools Any bleeding ? exceeding one tablespoon 6. Call your physician if the site where your intravenous was started becomes red, swollen, painful, and warm to touch. 7. Your physician has reviewed your pre-procedure medications. Please continue to take those medications as previously ordered. You will be given specific information/education regarding any changes to your medications before leaving. Activity:: Activity as Tolerated Diet:: As Tolerated Discharge Orders Discharge Orders: Discharge Order (Routine); Ordered 10/13/24 Ordered By: Eduardo Soler DS: Diagnosis Discharge Diagnosis (1) Encounter for screening colonoscopy: Status: Acute Asessment and Plan: Follow-up on biopsy results
--- NOTE | 2024-10-13 06:20 | W.COLOREPORT ---
Date of service: 10/14/24 Time of Service: 10:22 Colonoscopy Report Date of procedure: 10/14/24 Pre-op diagnosis general: screening colonoscopy Post-op diagnosis procedure note: other (Proctitis, diverticulosis, colon polyps) Procedure: colonoscopy with polypectomy and biopsies Surgeon: Eduardo Soler Anesthesia Type: General:No Airway Estimated blood loss (mL): 10 Pathology: other (0.25 cm rectal polyp, 0.25 cm cecal polyp, 0.25 cm polyps at 90, 75, and 55 cm; random biopsies of rectal stump) Complications: None Disposition: same day Indications: Phu is a 68 year old man with chronic proctitis and complicated diverticulititis (s/p robotic sigmoid resection) and adenomatous polyps who needs his next screening colonoscopy Prep: Miralax/Dulcolax Procedure Start Time: 09:33 Procedure End Time: 10:00 Retraction Time: 16 Findings: Proctitis of the proximal rectal stump just distal to colorectal anastomosis; colon rectal polyps, pandiverticulosis Procedure Description: After the induction of monitored anesthetic care, and with Phu in left lateral decubitus position, I began by performing an external anorectal exam.? Perineum and skin were normal, as was the anal verge.? There was no evidence of external hemorrhoids.? Next, I performed a digital rectal exam.? I did not appreciate any abnormal findings.? Next, I advanced a colonoscope into the rectal vault.? I performed retroflexion.? There are 2 clips in the distal rectum just above the anal column. There are some polypoid tissue arising from 1 area immediately adjacent to clip. This was removed with cold forceps. The history that I had available to me prior to this did not include the application of any clips within the rectal vault. Remainder of the distal rectum was normal-appearing. His colorectal anastomosis is at 18 cm beyond the anal verge. The rectal stump is quite inflamed, with friable tissue and a cryptic appearance to the mucosa. There are diverticula arising from the rectal stump. Cold forceps biopsies were performed here. I am able to traverse the colorectal anastomosis adjacent to this with ease, and continue advancing to the right side. There is pandiverticulosis. The scope was noted to be in the cecum by identification of the ileocecal valve and appendiceal orifice.? I then began withdrawing the colonoscope using repeated irrigation as necessary for full evaluation of the colonic mucosa. A 0.25 cm flat polyp was found within the cecum. This was removed with cold forceps with minimal bleeding. I found 0.25 cm flat polyps at 90 cm, 75 cm, and 55 cm from the anal verge as well. These were all flat in nature, and I removed each of these with cold forceps with minimal bleeding. There is a diffuse area of colonoscopic tattooing around 30 cm from the anal verge. Several passes were taken across this area, and I did not see any other pathology arising from the area. Once the scope was withdrawn to the level of the rectum, great care was taken to examine portions of the rectal folds.? Finally, the scope was withdrawn and the patient was brought to the same-day surgery recovery unit as the anesthetic wore off. ?The findings and instructions were shared with the patient prior to discharge. Braselton Bowel Prep Braselton Bowel Prep Right Colon: 2 Left Colon: 2 Transverse Colon: 3 Total Score: 7
[2024-10-14 07:59] VITALS: PULSE 66; RESP 20; TEMP 36.8; O2SAT 95
[2024-10-14] MEDS: Lactated Ringers 1,000 ML 80 ML IV (08:18)
--- NOTE | 2024-10-14 09:00 | ANES.PREOP_ITS ---
General Info Date of Service Date Performed: 10/14/24 Height: 6 ft Weight: 105.9 kg Body Mass Index (BMI): 31.6 Surgical Procedure: Operation Date: 10/14/24 09:20 Proposed Procedure Side Surgeon isaac Soler MD Meds Allergies and Home Medications Allergies Allergy/AdvReac Type Severity Reaction Status Date / Time bee pollen Allergy Hives Verified 10/14/24 07:56 chlorthalidone AdvReac Intermediate low Verified 10/14/24 07:56 potassium influenza virus vaccine Allergy Intermediate body aches Uncoded 10/14/24 07:56 and fever Home Medication ?Medication ?Instructions ?Recorded aspirin 81 mg chewable tablet 81 mg PO DAILY #90 tab-caps 12/14/12 (Aspirin Low-Strength) multivitamin (Daily Vitamin tablet) 1 ea PO DAILY 12/14/12 acetaminophen 500 mg tablet 500 mg PO BID PRN ##2 11/27/15 (Tylenol Extra Strength) garlic 400 mg tablet (Daily Garlic 400 mg PO BID 04/04/16 Once-A-Day) apple cider vinegar 600 mg capsule 600 mg PO DAILY 05/11/21 ascorbate calcium (vitamin C) 500 500 mg PO DAILY 05/11/21 mg tablet coenzyme Q10 100 mg capsule 100 mg PO DAILY 05/11/21 (CoQ-10) fluticasone furoate 27.5 2 spray intranasal DAILY #18.2 mL 05/11/21 mcg/actuation nasal spray,suspension magnesium carb,citrate,oxide 300 mg PO DAILY 05/11/21 (Magnesium Complex) simethicone 125 mg chewable tablet 125 mg PO QD-BID PRN 04/04/22 (Mylanta Gas) cholecalciferol (vitamin D3) 50 50 mcg PO DAILY 05/02/23 mcg (2,000 unit) capsule polyethylene glycol 3350 17 17 g PO DAILY 06/21/23 gram/dose oral powder (Miralax) epinephrine 0.3 mg/0.3 mL 0.3 mg (0.3 mL) IJ PRN PRN 12/12/23 injection, auto-injector hypersensitivity reaction #2 ea amlodipine 10 mg tablet See Rx Instructions .Route 01/08/24 .COMPLEX #90 tabs terbinafine HCl 1 applic topical DIRECTED 05/20/24 spironolactone 25 See Rx Instructions .Route 06/17/24 mg-hydrochlorothiazide 25 mg tablet .COMPLEX #90 tabs simvastatin 10 mg tablet See Rx Instructions .Route 08/12/24 .COMPLEX #90 tabs Current Visit Medications: Current Medications Generic Name Dose Route Start Last Admin Trade Name Freq PRN Reason Stop Dose Admin Ringer's Solution 1,000 mls @ 80 mls/hr 10/14/24 06:00 10/14/24 08:18 IV 10/14/24 23:59 80 mls/hr INFUSION VIGNESH Administration IV Miscellaneous Supplies 1 each 10/14/24 06:00 Iv Access IV 10/14/24 23:59 DIRECTED VIGNESH Ondansetron HCl 4 mg 10/13/24 06:22 Ondansetron 4 Mg/2 Ml Vial IVP 11/12/24 06:21 Q4H PRN PRN Nausea / Vomiting Sodium Chloride 0 ml 10/14/24 06:00 Normal Saline Flush 10 Ml Syr IV 10/14/24 23:59 PRN PRN Sodium Chloride 0 ml 10/14/24 06:00 Normal Saline 10 Ml Vial IJ 10/14/24 23:59 DIRECTED PRN Sterile Water 0 ml 10/14/24 06:00 Water,Injection,Sterile 10 Ml Vial IJ 10/14/24 23:59 DIRECTED PRN PFSH Active Problems Active Problems: Problem Status Onset Code Encounter for screening colonoscopy Acute Z12.11 S/P partial colectomy Acute Z90.49 Liver abscess Acute ~05/2023 K75.0 Portal vein thrombosis Acute I81 Nasal congestion Acute R09.81 Hemorrhoids Acute ~02/2023 K64.9 Proctitis Acute K62.89 Hematochezia Acute K92.1 Cough Acute R05.9 History of tobacco abuse Acute Z87.891 Screening for AAA (abdominal aortic aneurysm) Acute Z13.6 Tubular adenoma Acute ~04/23/20 D36.9 Serrated adenoma of colon Acute ~04/23/20 D12.6 Adenomatous polyps Acute D36.9 Diverticula of colon Acute K57.30 Periodic limb movement disorder Acute 11/22/17 G47.61 Obstructive sleep apnea treated with BiPAP Acute 11/22/17 G47.33 Hyperlipidemia Acute 08/07/04 E78.5 Essential hypertension Acute 08/07/01 I10 Benign hypertension Acute 08/07/01 I10 Routine general medical examination at a health care facility Acute Z00.00 Colon cancer screening Acute Z12.11 S/P left rotator cuff repair Acute 02/10/20 Z98.890 Chronic left shoulder pain Acute M25.512, G89.29 Obesity Chronic E66.9 Medical History Medical History Pain in left foot (~05/2024) 05/15/24 [facility]- supportive inserts recommended. Tinea pedis (~05/2024) 05/15/24 [facility] Diverticulitis (~05/2023) 08/24/23 F/U with general surgeon at Surgical History Surgical History H/O colectomy (11/14/23) Sigmoid resection. [facility] History of colonoscopy (~04/23/20) [place] [place] (03/07/02) Dr Parekh's office Repair of inguinal hernia (~1984) [facility] Debridement, Soft Tissue (08/07/85) Dr Ramirez Left wrist: staph infection debrided Tobacco Smoking/Tobacco Use Status: Former Tobacco Use Alcohol Alcohol Intake: current Alcohol intake frequency: holidays/special occasions only Alcohol type: beer Substance Use Substance use: Never Substance use type: does not use Vital Signs and Lab Results Vital Signs Most Recent Vital Signs in EMR: Most Recent Vital Signs Temp Pulse Resp Pulse Ox 36.8 C 66 20 95 10/14/24 07:59 10/14/24 07:59 10/14/24 07:59 10/14/24 07:59 Vital Signs Comment Vital Signs Comment:: Blood pressure: 130/97 Lab Results Blood Type / Crossmatch: No Data to Display Complete Blood Count: No Data to Display Complete Metabolic Panel: No Data to Display Liver Function Panel: No Data to Display Coagulation Panel: No Data to Display Cardiac Panel: No Data to Display Arterial Blood Gas: No Data to Display Venous Blood Gas: No Data to Display Pancreas Panel: No Data to Display Thyroid Panel: No Data to Display Infectious Disease: No Data to Display Blood Cultures: No Data to Display Toxicology Panel: No Data to Display Imaging and Studies Imaging and Studies Study information below may be from another EMR and interpreted by another provider. Please see original notes in EMR for more complete details. Echocardiogram Summary: 01/31/23: Conclusion Normal left ventricular wall thickness and chamber size. Ejection fraction is 55%. Wall motion is normal Normal right ventricular size and systolic function Both atria are normal in size There is no structural or hemodynamically significant valvular disease Mildly dilated ascending aorta 3.84 cm Estimated right ventricular systolic pressure is 27 mmHg Anesthesia Assessment and Plan Anesthesia History Personal History: No History of Anesthesia Complications Family History: No Family History of Anesthesia Complications Exercise Tolerance Exercise Tolerance: Metabolic Equivalents>4 Pertinent Negatives Pertinent Negatives: No Symptoms of GERD Cardiac & Pulmonary Exam Cardiac Exam: Normal S1/S2 Heart Sounds Pulmonary Exam: Clear Bilateral Breath Sounds Implantable Cardiac Device Does patient have a Pacemaker or an ICD?: No Airway Exam Known Difficult Airway: No Mallampati Class: 4 Mouth Opening: Normal (> 3cm) Thyromental Distance: Greater than 3 cm Neck Range of Motion: Full ROM Neck Circumference: Normal Teeth Condition: Normal Dentition and Loose or Chipped Airway Comments: #11 chipped ASA Classification ASA Score: ASA 3 Emergency Case?: No NPO Status NPO Status: NPO Clears >2 hours, Solids >8 hours Anesthesia Plan Resuscitation Status: Full Code Anesthesia Technique: General Anesthesia Airway Planned: Natural Airway Monitors Used: Standard Monitors
[2024-10-14 09:24] VITALS: BP 130/97; PULSE 66; RESP 20; TEMP 36.8; O2SAT 95
[2024-10-14 09:26] VITALS: BMI 31.6
--- NOTE | 2024-10-14 09:37 | BOWEL_PTH ---
PATIENT: Phu Em LOC: [facility] U#:[id number] AGE/SX: 68/M ROOM: RE10/14/[address]: Eduardo Soler MD : 1955 BED: DIS: 10/14/2024 SPEC #: [id number] RECD: 10/14/24 13:10 STATUS: SLIM RE #: [id number] CHUY: 10/14/24 09:[address]: Eduardo Soler DEPT: Surgical Specimen RECD BY: Kika Turpin ENTERED: 10/14/24 13:12 SP TYPE: Bowel OTHR DR: Sary Jackson APRN Tissues: 1 - BIOPSY BOWEL 2 - BIOPSY BOWEL 3 - BIOPSY BOWEL 4 - BIOPSY BOWEL 5 - BIOPSY BOWEL 6 - BIOPSY BOWEL Procedures: GROSS AND MICRO LEVEL 4 Comments: [id number]
[2024-10-14 10:08] VITALS: BP 112/91; PULSE 78; RESP 16; TEMP 36.3; O2SAT 94
--- NOTE | 2024-10-14 10:39 | W.ANESPOSTOP ---
Postoperative Evaluation Date, Time and Location Date Performed: 10/14/24 Time Performed: 10:39 Patient Location: Day Surgery Unit Vital Signs Most Recent Imported Vital Signs: Most Recent Vital Signs Temp Pulse Resp BP Pulse Ox 36.3 C L 78 16 112/91 H 94 10/14/24 10:08 10/14/24 10:08 10/14/24 10:08 10/14/24 10:08 10/14/24 10:08 Pain Score Most Recent Pain Score: Most Recent Pain Score Pain Level 0 10/14/24 10:08 Assessment Mental Status: Awake (Alert & Oriented to Patient Baseline) Airway and Respiratory Function: Patent airway with normal (patient baseline) respiratory exam Cardiovascular Function: Hemodynamically Stable Hydration Status: Adequately Hydrated Nausea & Vomiting: No Nausea or Vomiting Pain: Pt. Denies Any Pain Peripheral Nerve Block: Patient did not receive a nerve block
[2024-10-14 10:40] VITALS: BP 127/86; PULSE 67; RESP 18; TEMP 36.3; O2SAT 96
== END 2024-10-14 11:00 | disposition home or self-care (01) ==
LOC: SUR 07:30
PROVIDERS: PCP Nurse Practitioner; Visit Provider Surgery
PROC: 0DJD8ZZ Inspection of Lower Intestinal Tract, Via Natural or Artificial Opening Endoscopic (ICD-10-PCS; CPT 45378; principal; 2024-10-14 09:15)
DX: Z12.11 Encounter for screening for malignant neoplasm of colon (principal); K57.30 Diverticulosis of large intestine without perforation or abscess without bleeding; D12.0 Benign neoplasm of cecum; K62.89 Other specified diseases of anus and rectum; D12.3 Benign neoplasm of transverse colon; D12.4 Benign neoplasm of descending colon
CPT/HCPCS: 45380; 88305; J2003; J2704

== ENCOUNTER 2024-11-07 03:23 | Outpatient (CLI) | payer MEDICARE, BC, SELFPAY ==
[2024-11-07 10:16] LABS: Abs Immature Grans 0.02 10^3/uL (0.0-0.06); Absolute Basophil Count 0.08 10^3/uL (0.0-0.2); Absolute Eosinophil Count 0.27 10^3/uL (0.0-0.7); Absolute Monocyte Count 0.71 10^3/uL (0.1-0.8); Absolute Neutrophil Count 3.52 10^3/uL (1.2-6.7); Basophils % 1.3 %; Eosinophils % 4.3 %; HCT 50.8 % (40.0-50.0); HGB 17.2 g/dL (13.5-17.5); Immature Grans % 0.3 %; MCH 31.2 pg (27.0-33.0); MCHC 33.9 % (32.0-36.0); MCV 92 fL (80-95); MPV 10.3 fL (8.0-11.0); Monocytes % 11.3 %; Neutrophils % 55.8 %; Platelet Count 300 10^3/uL (130-400); RBC 5.52 10^6/uL (4.36-5.78); RDW 13.6 % (11.8-14.1); RDW-SD 46.5 fL
[2024-11-07 10:18] LABS: ESR 6 mm/hr (0-20)
[2024-11-07 10:40] LABS: Iron 100 ug/dL (65-175); Total Iron Binding Capacity 392 ug/dL (250-450); Transferrin Sat 26 % (20-55)
[2024-11-07 10:42] LABS: ALT 27 U/L (16-63); AST 21 U/L (15-37); Alkaline Phosphatase 80 U/L (46-116); BUN 14 mg/dL (7-18); Bilirubin, Total 0.6 mg/dL (0.2-1.0); CREATININE 1.1 mg/dL (0.70-1.30); Calcium 9.6 mg/dL (8.5-10.1); Chloride 105 mmol/L (98-107); Estimated GFR 73.12 (mL/min/1.73m2); Glucose 105 mg/dL (74-106); Potassium 3.3 mmol/L (3.5-5.1); Sodium 144 mmol/L (136-145); Total Protein 7.7 g/dL (6.4-8.2)
[2024-11-07 10:45] LABS: C-Reactive Protein < 0.50 mg/dL (<or=0.5)
[2024-11-07 11:08] LABS: Ferritin 36 ng/mL (26-388)
[2024-11-12] LABS: Calprotectin 435 mcg/g
== END 2024-11-07 03:24 | disposition home or self-care (01) ==
PROVIDERS: PCP Nurse Practitioner; Visit Provider Nurse Practitioner Adult Health
DX: K51.20 Ulcerative (chronic) proctitis without complications (principal); K52.89 Other specified noninfective gastroenteritis and colitis
CPT/HCPCS: 36415; 80053; 85652; 82728; 83540; 83550; 83993; 85025; 86140

== ENCOUNTER 2025-02-20 16:57 | Outpatient (REF) | payer MEDICARE, BC, SELFPAY | END 2025-02-20 16:58 | disposition home or self-care (01) | LOC: LBN 16:57 | PROVIDERS: PCP Nurse Practitioner; Visit Provider Nurse Practitioner Adult Health | DX: K52.89 Other specified noninfective gastroenteritis and colitis (principal); K51.20 Ulcerative (chronic) proctitis without complications | CPT/HCPCS: 83993 ==